=== PATIENT | male | born 1965 | race Caucasian/White ===

== ENCOUNTER 2016-09-24 10:28 | Inpatient (IN) | payer OTHER ==
[2016-09-24] MEDS ORDERED: chlordiazePOXIDE HCL 25 MG CAPSULE PO ONE (11:25)
[2016-09-24] MEDS ORDERED: MAG HYDROX/AL HYDROX/SIMETH 30 ML UNIT-DOSE CUP PO ONE (11:25)
[2016-09-24] MEDS ORDERED: ONDANSETRON 4 MG/2 ML VIAL IVPB ONE (11:25)
[2016-09-24] MEDS ORDERED: FAMOTIDINE 20 MG/50 ML IVPB 50 ML IVPB ONE ×2 (11:25→11:41)
[2016-09-24] MEDS ORDERED: chlordiazePOXIDE HCL 25 MG CAPSULE ONE (11:29)
[2016-09-24] MEDS ORDERED: ONDANSETRON 4 MG/2 ML VIAL ONE (11:30)
[2016-09-24] MEDS ORDERED: MAG HYDROX/AL HYDROX/SIMETH 30 ML UNIT-DOSE CUP ONE (11:41)
[2016-09-24 11:48] LABS: BASOPHIL 1.1 % (0-2.0); EOSINOPHIL 1.5 % (0-4.5); MCH 32.8 pg (25.7-33.7); MCHC 33.5 g/dl (32.0-35.9); MEAN CELL VOLUME 97.8 fl (80-96); NEUTROPHILS 74.6 % (42.8-82.8); PLATELET COUNT 80 K/MM3 (134-434); RDW 13.1 % (11.9-15.9); WHITE BLOOD COUNT 3.2 K/mm3 (4.0-10.0)
[2016-09-24 12:03] LABS: INR 0.9 (0.82-1.09); PROTHROMBIN TIME (PATIENT) 9.9 SEC (9.98-11.88)
[2016-09-24 12:05] LABS: ACTIVATED PTT 28.2 SECONDS (26.9-34.4)
[2016-09-24 12:07] LABS: ALBUMIN 3.7 g/dl (3.4-5.0); ANION GAP 10 (8-16); CALCIUM 8.8 mg/dL (8.5-10.1); CO2 30 mmol/L (21-32); GLUCOSE,RANDOM 105 mg/dL (74-106)
[2016-09-24 12:11] LABS: BILIRUBIN,TOTAL 0.6 mg/dL (0.2-1.0); COCKROFT - GAULT 122.84; CREATININE 0.7 mg/dL (0.7-1.3); SGPT/ALT 99 U/L (12-78); TOT PROT 7.2 g/dl (6.4-8.2)
[2016-09-24 12:12] LABS: ALK PHOS 85 U/L (45-117)
[2016-09-24 12:14] LABS: SGOT/AST 143 U/L (15-37)
--- NOTE | 2016-09-24 12:26 | PDOC ---
History of Present Illness - General History Source: Patient Exam Limitations: No Limitations - History of Present Illness Initial Comments: 09/24/16 13:00 The patient is a 51 year old male presenting with his friend, with a significant past medical history of asthma, depression and alcohol abuse, who presents to the emergency department with abdominal pain, nausea and hemoptysis for the past 2 weeks. The patient describes the abdominal pain as localized on the right side of the abdomen and is intermittent in nature. He notes that the pain is a burning sensation, ranging from mild to moderate, without radiation. He states that the pain is exacerbated when drinks. He describes his vomit as a mixture of blood and water. He also notes that he is having multiple episodes of diarrhea which is nonbloody in nature. He states that he attributes the diarrhea to a lack of food intake, as he is barely drinking and mostly ingesting alcohol. He states that he has not seeing a physician in a long time. The patient denies chest pain, shortness of breath, headache and dizziness. Denies fever, chills and constipation. Denies dysuria, frequency, urgency and hematuria. Allergies: None Past surgical history: None Social history: Daily alcohol abuse (Gaby use). No tobacco or drug use reported PMD - Dr. Felipe Calderon <Damir Bajwa - Last Filed: 09/24/16 13:00> - General History Source: Patient Exam Limitations: No Limitations <Leo Cuevas - Last Filed: 09/24/16 15:42> - General Chief Complaint: Hemoptysis Stated Complaint: COUGHING BLOOD Time Seen by Provider: 09/24/16 11:02 Past History <Damir Bajwa - Last Filed: 09/24/16 13:00> - Past Medical History Diabetes: Yes (on insulin at hs) - Psycho/Social/Smoking Cessation Hx Suicidal Ideation: No Smoking History: Never smoked Have you smoked in the past 12 months: No If you are a former smoker, when did you quit?: Approximately 6 years ago. Cigars Per Day: 0 Hx Alcohol Use: Yes (3 BOTTLES OF RUM) Drug/Substance Use Hx: Yes Substance Use Type: None Hx Substance Use Treatment: No <Leo Cuevas - Last Filed: 09/24/16 15:42> - Past Medical History Allergies/Adverse Reactions: Allergies Allergy/AdvReac Type Severity Reaction Status Date / Time No Known Allergies Allergy Verified 09/24/16 10:38 Home Medications: Ambulatory Orders NK [No Known Home Medication] 09/24/16 Review of Systems - Review of Systems Able to Perform ROS?: Yes Comments:: 09/24/16 13:02 GENERAL/CONSTITUTIONAL: No fever or chills. No weakness. HEAD, EYES, EARS, NOSE AND THROAT: No change in vision. No ear pain or discharge. No sore throat. CARDIOVASCULAR: No chest pain or shortness of breath RESPIRATORY: No cough, wheezing GASTROINTESTINAL: +Abdominal pain, nausea, vomiting, diarrhea, hemoptysis. No constipation. GENITOURINARY: No dysuria, frequency, or change in urination. MUSCULOSKELETAL: No joint or muscle swelling or pain. No neck or back pain. SKIN: No rash NEUROLOGIC: No headache, vertigo, loss of consciousness, or change in strength/ sensation. ENDOCRINE: No increased thirst. No abnormal weight change HEMATOLOGIC/LYMPHATIC: No anemia, easy bleeding, or history of blood clots. ALLERGIC/IMMUNOLOGIC: No hives or skin allergy. <Damir Bajwa - Last Filed: 09/24/16 13:00> *Physical Exam - Vital Signs Last Vital Signs Temp Pulse Resp BP Pulse Ox 99.5 F 105 H 19 138/97 97 09/24/16 10:38 09/24/16 10:38 09/24/16 10:38 09/24/16 10:38 09/24/16 10:38 - Physical Exam Comments: 09/24/16 13:0 GENERAL: Awake, alert, and fully oriented, in no acute distress HEAD: No signs of trauma, normocephalic, atraumatic EYES: PERRLA, EOMI, sclera anicteric, conjunctiva clear ENT: (+) Tongue fasciculations. Auricles normal inspection, hearing grossly normal, nares patent, oropharynx clear without exudates. Moist mucosa NECK: Normal ROM, supple, no lymphadenopathy, JVD, or masses LUNGS: No distress, speaks full sentences, clear to auscultation bilaterally HEART: Regular rate and rhythm, normal S1 and S2, no murmurs, rubs or gallops, peripheral pulses normal and equal bilaterally. ABDOMEN: Soft, nontender, normoactive bowel sounds. No guarding, no rebound. No masses EXTREMITIES: (+) Bilateral upper extremity tremors. Normal range of motion, no edema. No clubbing or cyanosis. NEUROLOGICAL: Cranial nerves II through XII grossly intact. Normal speech, normal gait, no focal sensorimotor deficits SKIN: Warm, Dry, normal turgor, no rashes or lesions noted. <ErynrobertDamir Tahmina - Last Filed: 09/24/16 13:00> - Vital Signs Last Vital Signs Temp Pulse Resp BP Pulse Ox 99.5 F 105 H 19 138/97 97 09/24/16 10:38 09/24/16 10:38 09/24/16 10:38 09/24/16 10:38 09/24/16 10:38 <Leo Cuevas - Last Filed: 09/24/16 15:42> Heart Score/ECG Review #1 ECG reviewed & interpreted by me at: 11:35 09/24/16 12:27 NSR 81 no std/sotero, normal axis, normal intervals, QTC 429 msec. no twi <Leo Cuevas - Last Filed: 09/24/16 15:42> ED Treatment Course - LABORATORY CBC & Chemistry Diagram: 09/24/16 11:27 09/24/16 11:27 - ADDITIONAL ORDERS Additional order review: Laboratory Results 09/24/16 09/24/16 09/24/16 12:13 11:27 11:27 INR PTT (Actin FS) Sodium 143 Potassium 4.2 Chloride 103 Carbon Dioxide 30 Anion Gap 10 BUN 13 Creatinine 0.7 Creat Clearance w eGFR > 60 Random Glucose 105 Calcium 8.8 Total Bilirubin 0.6 AST 143 H ALT 99 H Alkaline Phosphatase 85 Total Protein 7.2 Albumin 3.7 Lipase 380 Blood Type A POSITIVE A POSITIVE Antibody Screen Negative 09/24/16 11:27 INR 0.90 PTT (Actin FS) 28.2 Sodium Potassium Chloride Carbon Dioxide Anion Gap BUN Creatinine Creat Clearance w eGFR Random Glucose Calcium Total Bilirubin AST ALT Alkaline Phosphatase Total Protein Albumin Lipase Blood Type Antibody Screen 09/24/16 11:27 RBC 4.11 MCV 97.8 H MCHC 33.5 RDW 13.1 MPV 7.0 L Neutrophils % 74.6 Lymphocytes % 11.2 Monocytes % 11.6 H Eosinophils % 1.5 Basophils % 1.1 - Medications Given in the ED: ED Medications Discontinued Medications Generic Name Dose Route Start Last Admin Trade Name Brock PRN Reason Stop Dose Admin Al Hydroxide/Mg Hydroxide 30 ml 09/24/16 11:25 09/24/16 11:45 Mylanta Oral Suspension - PO 09/24/16 11:26 30 ml ONCE ONE Administration Chlordiazepoxide HCl 50 mg 09/24/16 11:25 09/24/16 11:40 Librium - PO 09/24/16 11:26 50 mg ONCE ONE Administration Diazepam 10 mg 09/24/16 12:37 09/24/16 12:45 Valium Injection - IVPUSH 09/24/16 12:38 10 mg ONCE ONE Administration Famotidine/Sodium Chloride 50 mls @ 100 mls/hr 09/24/16 11:25 09/24/16 11:45 Pepcid 20 Mg Premixed Ivpb - IVPB 09/24/16 11:54 100 mls/hr ONCE ONE Administration Ondansetron HCl 4 mg 09/24/16 11:25 09/24/16 11:40 Zofran Injection IVPB 09/24/16 11:26 4 mg ONCE ONE Administration <Damir Bajwa - Last Filed: 09/24/16 13:00> - LABORATORY CBC & Chemistry Diagram: 09/24/16 11:27 09/24/16 11:27 - RADIOLOGY Radiology Studies Ordered: Category Date Time Status ABDOMEN & PELVIS CT WITH CONTR [CT] Stat CT Scan 09/24/16 11:25 Ordered CHEST X-RAY PORTABLE* [RAD] Stat Radiology 09/24/16 11:25 Ordered - Medications Given in the ED: ED Medications Discontinued Medications Generic Name Dose Route Start Last Admin Trade Name Brock PRN Reason Stop Dose Admin Al Hydroxide/Mg Hydroxide 30 ml 09/24/16 11:25 09/24/16 11:45 Mylanta Oral Suspension - PO 09/24/16 11:26 30 ml ONCE ONE Administration Chlordiazepoxide HCl 50 mg 09/24/16 11:25 09/24/16 11:40 Librium - PO 09/24/16 11:26 50 mg ONCE ONE Administration Ondansetron HCl 4 mg 09/24/16 11:25 09/24/16 11:40 Zofran Injection IVPB 09/24/16 11:26 4 mg ONCE ONE Administration <Leo Cuevas - Last Filed: 09/24/16 15:42> Medical Decision Making - Medical Decision Making 09/24/16 12:28 A portion of this note was documented by scribe services under my direction. I have reviewed the details of the note, within reason, and agree with the documentation with the following case summary and management plan written by me. Patient treated in the ED. Nursing notes are reviewed and incorporated into the medical decision-making. Vital signs reviewed. Peripheral IV access obtained by the nurse, laboratory studies are drawn and sent, reviewed and interpreted by myself. Vital Signs Temp Pulse Resp BP Pulse Ox 99.5 F 105 H 19 138/97 97 09/24/16 10:38 09/24/16 10:38 09/24/16 10:38 09/24/16 10:38 09/24/16 10:38 51-year-old male with past medical history of alcohol abuse, hypertension, diabetes presents with alcohol withdrawal and abdominal pain and hematemesis. The patient reports that he was having diffuse abdominal pain, R sided and epigastric worsened with drinking alcohol. He drinks gaby daily. States that he has been vomiting his alcohol and food and has become intermittently mixed with blood after vomiting. Denies blood per stool. Does not have a doctor. Last drink was yesterday. Came into the ED today because friend encouraged him to come. CBC, BMP 09/24/16 11:27 09/24/16 11:27 CMP Sodium 143 mmol/L (136-145) 09/24/16 11:27 Potassium 4.2 mmol/L (3.5-5.1) 09/24/16 11:27 Chloride 103 mmol/L (98-107) 09/24/16 11:27 Carbon Dioxide 30 mmol/L (21-32) 09/24/16 11:27 Anion Gap 10 (8-16) 09/24/16 11:27 BUN 13 mg/dL (7-18) 09/24/16 11:27 Creatinine 0.7 mg/dL (0.7-1.3) 09/24/16 11:27 Creat Clearance w eGFR > 60 (>60) 09/24/16 11:27 Random Glucose 105 mg/dL (74-106) 09/24/16 11:27 Calcium 8.8 mg/dL (8.5-10.1) 09/24/16 11:27 Total Bilirubin 0.6 mg/dL (0.2-1.0) 09/24/16 11:27 AST 143 U/L (15-37) H 09/24/16 11:27 ALT 99 U/L (12-78) H 09/24/16 11:27 Alkaline Phosphatase 85 U/L (45-117) 09/24/16 11:27 Total Protein 7.2 g/dl (6.4-8.2) 09/24/16 11:27 Albumin 3.7 g/dl (3.4-5.0) 09/24/16 11:27 Lipase 380 U/L (73-393) 09/24/16 11:27 Low WBC and low plts and elevated LFTs concerning for cirrhosis. Should potentially consider esophageal varices (has not vomited here in ED) With diffuse abdominal pain, pt will need CT scan of abdomen and pelvis. So far has not vomited. Pt is also in alcohol withdrawal. Will give benzos. ultimately patient needs to be admitted for further workup. 09/24/16 15:39 Chest xray reviewed. No acute findings. Case discussed with Dr. Arciniega. She accepts the patient for admission. Requests Dr. Osman. Dr. Osman paged. Case discussed in detail with admitting physician including history, physical exam and ancillary studies. Admitting physician has assumed care for the patient, will follow all pending diagnostics and will complete the evaluation and treatment. <Leo Cuevas - Last Filed: 09/24/16 15:42> *DC/Admit/Observation/Transfer - Attestations Scribe Attestion: 09/24/16 13:03 Documentation prepared by Damir Bajwa, acting as medical artist for Leo Cuevas MD <Damir Bajwa - Last Filed: 09/24/16 13:00> - Discharge Dispostion Admit: Yes <Leo Cuevas - Last Filed: 09/24/16 15:42> Diagnosis at time of Disposition: Hepatic cirrhosis Qualifiers: Hepatic cirrhosis type: alcoholic cirrhosis Ascites presence: without ascites Qualified Code(s): K70.30 - Alcoholic cirrhosis of liver without ascites Alcohol withdrawal syndrome Qualifiers: Complication of substance-induced condition: uncomplicated Qualified Code(s): F10.230 - Alcohol dependence with withdrawal, uncomplicated - Discharge Dispostion Condition at time of disposition: Stable - Referrals Referrals: Felipe Calderon [Primary Care Provider] -
[2016-09-24] MEDS ORDERED: diazePAM CARPU-JECT 10 MG/2 ML DISP.SYRIN IVPUSH ONE ×2 (12:37→15:42)
[2016-09-24] MEDS ORDERED: diazePAM CARPU-JECT 10 MG/2 ML DISP.SYRIN ONE ×2 (12:39→15:43)
[2016-09-24] MEDS ORDERED: LORAZEPAM CARPU-JECT 2 MG/ML DISP.SYRIN IVPUSH ONE (17:51)
--- NOTE | 2016-09-24 18:14 | CON.GI ---
Consult Consult Specialty:: GASTROENTEROLOGY Reason for Consultation:: STREAKS OF BLOOD IN VOMITUS 2 DAYS AGO - History of Present Illness Chief Complaint: SHAKES AND ABDOMINAL PAIN History of Present Illness: 51 YEAR OLD ALCOHOLIC WHO LAST DRANK YESTERDAY AND STATES HE SAW OM BLOOD IN HE VOMITUS THE DAY BEFORE. HE HAS HAD NO FURTHER VOMITING SINCE YESTERDAY BUT NOW HAS ABDOMINAL PAIN IN THE RUQ AND EPIGASTRIC AREA. HE DENIES BRBPR OR MELENA. HE ALSO COMPLAINS OF ANXIETY, NERVOUSNESS, TREMORS CURRENTLY. HE WAS GIVEN LIBRIUM , VALIUM IN THE ED WITH MINIMAL EFFECT. HE STATE HE HAS IVETTE DRINKING FOR ABOUT15 YEAS. HE DRINKS WHAT HE CAN GET EITHER BEER, TEQUILA ETC. SOMETIMES IT IS A QUART AND OTHER TIMES IT IS A 2 QUARTS. HE HAS NOT BLED BEFORE. HAS NO HISTORY OF GI BLEEDING OR ULCERS. HAS NOT SEEN A PHYSICIAN FOR HIS PROBLEMS. HE IS IN THE SYSTEM AT [facility] YE[facility] AGO. 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: Alzheimer's, CVA, Dementia, Migraine, Multiple Sclerosis, Peripheral Neuropathy, Parkinson's, Seizure, Syncope, TIA, Vertigo, Other Cardio/Vascular: No: AFIB, Aneurysm, Aortic Insufficiency, Aortic Stenosis, CAD , CHF, Deep Vein Thrombosis, HTN, Hyperlipdemia, [place], Mitral Insufficiency, Mitral Stenosis, Murmur, Pulmonary Hypertension, Other Pulmonary: No: Asthma, Bronchitis, Cancer, COPD, O2 Dependent, Pneumonia, Previously Intubated, Pulmonary Embolus, Pulmonary Fibrosis, Sleep Apnea, Other Gastrointestinal: No: Ascites, Cancer, Constipation, Crohn's Disease, Diverticulitis, Diverticulosis, Esophageal Varices, Gastritis, GERD, GI Bleed, Hemorrhoids, Hiatal Hernia, Inflamatory Bowel Disease, Irritable Bowel Disease, Pancreatitis, Peptic Ulcer Disease, Ulcerative Colitis, Other Hepatobiliary: No: Cirrhosis, Cholelithiasis, Cholecystitis, Choledocholithiasis , Hepatitis A, Hepatitis B, Hepatitis C, Other Renal/: No: Renal Failure, Renal Inusuff, BPH, Cancer, Hematuria, Hemodialysis , Neurogenic Bladder, Renal Calculi, UTI, Other Heme/Onc: No: Anemia, B12 Deficiency, Bleeding Disorder, Cancer, Current Chemotherapy, Current Radiation Therapy, Hemochromatosis, Hypercoaguable State, Myeloproliferative Synd, Sickle Cell Disease, Sickle Cell Trait, Thrombocytopenia, Other Infectious Disease: No: AIDS, C-Diff, Herpes Zoster, HIV, MRSA, STD's, Tuberculosis, VREF, Other Psych: Yes: Addictions Musculoskeletal: No: Bursitis, Chronic low back pain, Hemiparesis, Hemiplegia, Osteoarthritis, Paraplegia, Other Rheumatology: No: Fibromyalgia, Gout, Lupus, Rheumatoid Arthritis, Sarcoidosis, Vasculitis, Other ENT: No: Allergic Rhinitis, Sinusitis, Other Endocrine: No: Foard's Disease, Hickman's Disease, Diabetes Insipidus, Diabetes Mellitus, Hyperparathyroidism, Hyperthyroidism, Hypothyroidism, Osteopenia, SIADH, Other - Alcohol/Substance Use Hx Alcohol Use: Yes (3 BOTTLES OF RUM) - Smoking History Smoking history: Never smoked Have you smoked in the past 12 months: No If you are a former smoker, when did you quit?: Approximately 6 years ago. Home Medications - Allergies Allergies/Adverse Reactions: Allergies Allergy/AdvReac Type Severity Reaction Status Date / Time No Known Allergies Allergy Verified 09/24/16 10:38 - Home Medications Home Medications: Ambulatory Orders NK [No Known Home Medication] 09/24/16 Family Disease History - Family Disease History Family Disease History: Other: Father Review of Systems - Review of Systems Constitutional: reports: Chills, Loss of Appetite, Other (TREMORS) Eyes: reports: No Symptoms HENT: reports: No Symptoms Cardiovascular: reports: No Symptoms Respiratory: reports: No Symptoms Gastrointestinal: reports: Abdominal Pain, Vomiting, Vomiting Blood Genitourinary: reports: No Symptoms Musculoskeletal: reports: No Symptoms Integumentary: reports: No Symptoms Neurological: reports: Tremors Psychiatric: reports: Altered Sleep Pattern, Anxiety Physical Exam-GI Vital Signs: Vital Signs Temperature 100.2 F H 09/24/16 17:08 Pulse Rate 87 09/24/16 17:08 Respiratory Rate 18 09/24/16 17:08 Blood Pressure 124/76 09/24/16 17:08 O2 Sat by Pulse Oximetry (%) 95 09/24/16 17:08 Constitutional: Yes: Well Nourished, Mild Distress Eyes: Yes: Conjunctiva Clear HENT: Yes: Normocephalic Neck: Yes: Supple Cardiovascular: Yes: Tachycardia Respiratory: Yes: Regular Gastrointestinal Inspection: Yes: Distention ...Auscultate: Yes: Hyperactive Bowel Sounds ...Palpate: Yes: Soft, Tenderness (MILD RUQ PAIN NO GUADING OR REBOUND) Extremities: Yes: WNL Neurological: Yes: Alert, Tremors Psychiatric: Yes: Other (NERVOUS/ANXIOUS) Labs: INR, PTT INR 0.90 (0.82-1.09) 09/24/16 11:27 Imaging - Results Ultrasound: Image Reviewed Problem List - Problems (1) Alcohol withdrawal Assessment/Plan: STAT DOSE OF ATIVAN 3MG IVP LIBRIUM PROTOCOL PER 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 Code(s): K75.9 - INFLAMMATORY LIVER DISEASE, UNSPECIFIED (4) Thrombocytopenia Assessment/Plan: PROBABLY RELATED TO ETOH CONSUMPTION WILL IMPROVE WITH ABSTINENCE, IF NOT PT WOULD NEED FURTHER IMAGING OF IVER Code(s): D69.6 - THROMBOCYTOPENIA, UNSPECIFIED
[2016-09-24] MEDS ORDERED: PNEUMOC 13-VAL CONJ-DIP CRM/PF 0.5 ML DISP.SYRIN IM ONE (18:41)
[2016-09-24] MEDS ORDERED: DEXTROSE 5%-NORMAL SALINE 1,000 ML IV SCH (18:45)
[2016-09-24] MEDS ORDERED: MULTIVIT IVPB SCH (18:45)
[2016-09-24] MEDS ORDERED: [UNRECOGNIZED DRUG - OTHER] IV ONE (18:45)
[2016-09-24] MEDS ORDERED: DEXTROSE 5% IV ONE (18:45)
[2016-09-24] MEDS ORDERED: THIAMINE HCL IV ONE (18:45)
[2016-09-24] MEDS ORDERED: [UNRECOGNIZED DRUG - OTHER] IVPB SCH (18:45)
[2016-09-24] MEDS ORDERED: THIAMINE HCL IVPB SCH (18:45)
[2016-09-24] MEDS ORDERED: POTASSIUM CHLORIDE IVPB SCH (18:45)
[2016-09-24] MEDS ORDERED: NORMAL SALINE IV ONE (18:45)
--- NOTE | 2016-09-24 19:04 | HP ---
Admitting History and Physical - Primary Care Physician PCP: Adryan Arciniega - Admission History of Present Illness: - 51 y o male, h/o asthma, depression, etoh abuse came to er for abdominal pain, nausea and vomitting blood. 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: Alzheimer's, CVA, Dementia, Migraine, Multiple Sclerosis, Peripheral Neuropathy, Parkinson's, Seizure, Syncope, TIA, Vertigo, Other Cardiovascular: No: AFIB, Aneurysm, Aortic Insufficiency, Aortic Stenosis, CAD, CHF, Deep Vein Thrombosis, HTN, Hyperlipdemia, [place], Mitral Insufficiency, Mitral Stenosis, Murmur, Pulmonary Hypertension, Other Pulmonary: No: Asthma, Bronchitis, Cancer, COPD, O2 Dependent, Pneumonia, Previously Intubated, Pulmonary Embolus, Pulmonary Fibrosis, Sleep Apnea, Other Gastrointestinal: No: Ascites, Cancer, Constipation, Crohn's Disease, Diverticulitis, Diverticulosis, Esophageal Varices, Gastritis, GERD, GI Bleed, Hemorrhoids, Hiatal Hernia, Inflamatory Bowel Disease, Irritable Bowel Disease, Pancreatitis, Peptic Ulcer Disease, Ulcerative Colitis, Other Hepatobiliary: No: Cirrhosis, Cholelithiasis, Cholecystitis, Choledocholithiasis , Hepatitis A, Hepatitis B, Hepatitis C, Other Renal/: No: Renal Failure, Renal Inusuff, BPH, Cancer, Hematuria, Hemodialysis , Neurogenic Bladder, Renal Calculi, UTI, Other Heme/Onc: No: Anemia, B12 Deficiency, Bleeding Disorder, Cancer, Current Chemotherapy, Current Radiation Therapy, Hemochromatosis, Hypercoaguable State, Myeloproliferative Synd, Sickle Cell Disease, Sickle Cell Trait, Thrombocytopenia, Other Infectious Disease: No: AIDS, C-Diff, Herpes Zoster, HIV, MRSA, STD's, Tuberculosis, VREF, Other Psych: Yes: Addictions Musculoskeletal: No: Bursitis, Chronic low back pain, Hemiparesis, Hemiplegia, Osteoarthritis, Paraplegia, Other Rheumatology: No: Fibromyalgia, Gout, Lupus, Rheumatoid Arthritis, Sarcoidosis, Vasculitis, Other ENT: No: Allergic Rhinitis, Sinusitis, Other Endocrine: No: Wagoner's Disease, [place]'s Disease, Diabetes Insipidus, Diabetes Mellitus, Hyperparathyroidism, Hyperthyroidism, Hypothyroidism, Osteopenia, SIADH, Other - Smoking History Smoking history: Never smoked Have you smoked in the past 12 months: No If you are a former smoker, when did you quit?: Approximately 6 years ago. - Alcohol/Substance Use Hx Alcohol Use: Yes (3 BOTTLES OF RUM) Home Medications - Allergies Allergies/Adverse Reactions: Allergies Allergy/AdvReac Type Severity Reaction Status Date / Time No Known Allergies Allergy Verified 09/24/16 10:38 - Home Medications Home Medications: Ambulatory Orders NK [No Known Home Medication] 09/24/16 Family Disease History - Family Disease History Family History: Denies Family Disease History: Other: Father Physical Examination Vital Signs: Vital Signs Temperature 97.8 F 09/24/16 18:00 Pulse Rate 86 09/24/16 18:00 Respiratory Rate 18 09/24/16 18:00 Blood Pressure 144/94 09/24/16 18:00 O2 Sat by Pulse Oximetry (%) 95 09/24/16 17:08 Constitutional: Yes: No Distress HENT: Yes: Atraumatic Neck: Yes: Supple Cardiovascular: Yes: Regular Rate and Rhythm Respiratory: Yes: CTA Bilaterally Gastrointestinal: Yes: Normal Bowel Sounds, Tenderness (mild ruq) Extremities: Yes: WNL Neurological: Yes: Alert, Oriented Problem List - Problems (1) Alcohol withdrawal Code(s): F10.239 - ALCOHOL DEPENDENCE WITH WITHDRAWAL, UNSPECIFIED Qualifiers : Complication of substance-induced condition: uncomplicated Qualified Code(s): F10.230 - Alcohol dependence with withdrawal, uncomplicated (2) Alcoholic gastritis with bleeding Code(s): K29.21 - ALCOHOLIC GASTRITIS WITH BLEEDING (3) Cirrhosis Code(s): K74.60 - UNSPECIFIED CIRRHOSIS OF LIVER Qualifiers: Hepatic cirrhosis type: alcoholic cirrhosis Ascites presence: without ascites Qualified Code(s): K70.30 - Alcoholic cirrhosis of liver without ascites (4) Hepatitis Code(s): K75.9 - INFLAMMATORY LIVER DISEASE, UNSPECIFIED (5) Thrombocytopenia Code(s): D69.6 - THROMBOCYTOPENIA, UNSPECIFIED Assessment/Plan Laboratory Tests 09/24/16 09/24/16 09/24/16 11:27 11:27 11:27 WBC 3.2 L RBC 4.11 Hgb 13.5 Hct 40.2 MCV 97.8 H MCHC 33.5 RDW 13.1 Plt Count 80 L MPV 7.0 L Neutrophils % 74.6 Lymphocytes % 11.2 Monocytes % 11.6 H Eosinophils % 1.5 Basophils % 1.1 INR 0.90 PTT (Actin FS) 28.2 Sodium 143 Potassium 4.2 Chloride 103 Carbon Dioxide 30 Anion Gap 10 BUN 13 Creatinine 0.7 Creat Clearance w eGFR > 60 Random Glucose 105 Calcium 8.8 Total Bilirubin 0.6 AST 143 H ALT 99 H Alkaline Phosphatase 85 Total Protein 7.2 Albumin 3.7 Lipase 380 Blood Type Antibody Screen 09/24/16 09/24/16 11:27 12:13 WBC RBC Hgb Hct MCV MCHC RDW Plt Count MPV Neutrophils % Lymphocytes % Monocytes % Eosinophils % Basophils % INR PTT (Actin FS) Sodium Potassium Chloride Carbon Dioxide Anion Gap BUN Creatinine Creat Clearance w eGFR Random Glucose Calcium Total Bilirubin AST ALT Alkaline Phosphatase Total Protein Albumin Lipase Blood Type A POSITIVE A POSITIVE Antibody Screen Negative Active Medications Generic Name Dose Route Start Last Admin Trade Name Freq PRN Reason Stop Dose Admin Potassium Chloride 10 meq/ 1,017.2 mls @ 125 mls/hr 09/24/16 18:45 Thiamine HCl 200 mg/ IVPB Multivitamins/Minerals 10 ml/ ASDIR BOUCHRA Folic Acid 1 mg/ Dextrose/ Sodium Chloride Pantoprazole Sodium 40 mg 09/24/16 22:00 Protonix 40mg Ivpb (Pre-Docked) IVPB BID BOUCHRA Pneumococcal 13-Valent Conj Vacc 0.5 ml 09/24/16 18:41 Prevnar 13 Syringe - IM 09/24/16 18:42 .ONCE ONE A/P 1.ETOH ABUSE/WITHDRAWL PRN ATIVAN LIBRIUM DETOX CONSULT 2.HEMOPTYSIS GASTRITIS? SECONDARY TO ETOH ABUSE IV PROTONIX GI EVAL MONITOR CBC
[2016-09-24] MEDS: FOLIC ACID 5 MG/1 ML IVPB SCH (21:04)
[2016-09-24] MEDS: POTASSIUM CHLORIDE 10 MEQ in DEXTROSE 5%-NORMAL SALINE 1,000 ML IVPB SCH (21:05)
[2016-09-24] MEDS: THIAMINE HCL 200 MG/2 ML VIAL IVPB SCH (21:05)
[2016-09-24] MEDS: MULTIVIT INJ. ADULT COMBO WITH VIT K 1 COMBO 10 ML VIAL IV SCH (21:05)
[2016-09-24] MEDS ORDERED: LORAZEPAM CARPU-JECT 2 MG/ML DISP.SYRIN IVPUSH PRN (21:28)
[2016-09-24] MEDS ORDERED: PANTOPRAZOLE SODIUM 40 MG in SODIUM CHLORIDE 100 ML IVPB SCH (22:00)
[2016-09-24] MEDS: PANTOPRAZOLE SODIUM 40 MG/100 ML PRE-DOCKED IVPB SCH (22:56)
[2016-09-25] MEDS ORDERED: HYDROmorphone HCL CARPU-JECT 1 MG/1 ML DISP.SYRIN IVPB PRN (00:40)
[2016-09-25] MEDS: POTASSIUM CHLORIDE 10 MEQ in DEXTROSE 5%-NORMAL SALINE 1,000 ML IVPB SCH ×3 (05:06→12:00)
[2016-09-25 07:32] LABS: BASOPHIL 1.1 % (0-2.0); EOSINOPHIL 3.5 % (0-4.5); MCH 33.4 pg (25.7-33.7); MCHC 33.9 g/dl (32.0-35.9); MEAN CELL VOLUME 98.6 fl (80-96); MEAN PLT VOLUME 7.5 fl (7.5-11.1); NEUTROPHILS 66.3 % (42.8-82.8); PLATELET COUNT 77 K/MM3 (134-434); RDW 12.8 % (11.9-15.9); WHITE BLOOD COUNT 3.6 K/mm3 (4.0-10.0)
[2016-09-25 07:51] LABS: ALBUMIN 3.5 g/dl (3.4-5.0); ANION GAP 10 (8-16); BILIRUBIN,TOTAL 1.2 mg/dL (0.2-1.0); CALCIUM 8.8 mg/dL (8.5-10.1); CO2 31 mmol/L (21-32); COCKROFT - GAULT 107.49; CREATININE 0.8 mg/dL (0.7-1.3); GLUCOSE,RANDOM 86 mg/dL (74-106); SGOT/AST 109 U/L (15-37); SGPT/ALT 83 U/L (12-78)
[2016-09-25 07:54] LABS: ALK PHOS 87 U/L (45-117); TOT PROT 6.9 g/dl (6.4-8.2)
[2016-09-25 07:57] VITALS: BMI 22.6
[2016-09-25] MEDS ORDERED: PT OWN MED DRAWER 7, Y5N ONE (08:55)
[2016-09-25] MEDS: PANTOPRAZOLE SODIUM 40 MG/100 ML PRE-DOCKED IVPB SCH (09:02)
[2016-09-25] MEDS ORDERED: chlordiazePOXIDE HCL 25 MG CAPSULE PO PRN (11:08)
--- NOTE | 2016-09-25 11:13 | CONSULT ---
[id number],MD - History History of Present Illness: 51 y/o man with a long hx. of alcoholism is admitted with withdrawal sx. 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: No: Alzheimer's, CVA, Dementia, Migraine, Multiple Sclerosis, Peripheral Neuropathy, Parkinson's, Seizure, Syncope, TIA, Vertigo, Other Cardio/Vascular: No: AFIB, Aneurysm, Aortic Insufficiency, Aortic Stenosis, CAD , CHF, Deep Vein Thrombosis, HTN, Hyperlipdemia, OK, Mitral Insufficiency, Mitral Stenosis, Murmur, Pulmonary Hypertension, Other Pulmonary: No: Asthma, Bronchitis, Cancer, COPD, O2 Dependent, Pneumonia, Previously Intubated, Pulmonary Embolus, Pulmonary Fibrosis, Sleep Apnea, Other Gastrointestinal: No: Ascites, Cancer, Constipation, Crohn's Disease, Diverticulitis, Diverticulosis, Esophageal Varices, Gastritis, GERD, GI Bleed, Hemorrhoids, Hiatal Hernia, Inflamatory Bowel Disease, Irritable Bowel Disease, Pancreatitis, Peptic Ulcer Disease, Ulcerative Colitis, Other Hepatobiliary: No: Cirrhosis, Cholelithiasis, Cholecystitis, Choledocholithiasis , Hepatitis A, Hepatitis B, Hepatitis C, Other Renal/: No: Renal Failure, Renal Inusuff, BPH, Cancer, Hematuria, Hemodialysis , Neurogenic Bladder, Renal Calculi, UTI, Other Infectious Disease: No: AIDS, C-Diff, Herpes Zoster, HIV, MRSA, STD's, Tuberculosis, VREF, Other Psych: Yes: Addictions Musculoskeletal: No: Bursitis, Chronic low back pain, Hemiparesis, Hemiplegia, Osteoarthritis, Paraplegia, Other Rheumatology: No: Fibromyalgia, Gout, Lupus, Rheumatoid Arthritis, Sarcoidosis, Vasculitis, Other ENT: No: Allergic Rhinitis, Sinusitis, Other Endocrine: No: Real's Disease, Lia's Disease, Diabetes Insipidus, Diabetes Mellitus, Hyperparathyroidism, Hyperthyroidism, Hypothyroidism, Osteopenia, SIADH, Other - Significant Medical Findings: Laboratory Last Values WBC 3.6 K/mm3 (4.0-10.0) L 09/25/16 05:35 RBC 4.06 M/mm3 (4.00-5.60) 09/25/16 05:35 Hgb 13.6 GM/dL (11.7-16.9) 09/25/16 05:35 Hct 40.0 % (35.4-49) 09/25/16 05:35 MCV 98.6 fl (80-96) H 09/25/16 05:35 MCHC 33.9 g/dl (32.0-35.9) 09/25/16 05:35 RDW 12.8 % (11.9-15.9) 09/25/16 05:35 Plt Count 77 K/MM3 (134-434) L 09/25/16 05:35 MPV 7.5 fl (7.5-11.1) 09/25/16 05:35 Neutrophils % 66.3 % (42.8-82.8) 09/25/16 05:35 Lymphocytes % 18.5 % (8-40) D 09/25/16 05:35 Monocytes % 10.6 % (3.8-10.2) H 09/25/16 05:35 Eosinophils % 3.5 % (0-4.5) D 09/25/16 05:35 Basophils % 1.1 % (0-2.0) 09/25/16 05:35 INR 0.90 (0.82-1.09) 09/24/16 11:27 PTT (Actin FS) 28.2 SECONDS (26.9-34.4) 09/24/16 11:27 Sodium 141 mmol/L (136-145) 09/25/16 05:35 Potassium 3.4 mmol/L (3.5-5.1) L 09/25/16 05:35 Chloride 100 mmol/L (98-107) 09/25/16 05:35 Carbon Dioxide 31 mmol/L (21-32) 09/25/16 05:35 Anion Gap 10 (8-16) 09/25/16 05:35 BUN 11 mg/dL (7-18) 09/25/16 05:35 Creatinine 0.8 mg/dL (0.7-1.3) 09/25/16 05:35 Creat Clearance w eGFR > 60 (>60) 09/25/16 05:35 Random Glucose 86 mg/dL (74-106) 09/25/16 05:35 Calcium 8.8 mg/dL (8.5-10.1) 09/25/16 05:35 Total Bilirubin 1.2 mg/dL (0.2-1.0) H D 09/25/16 05:35 GGT 965 U/L (5-85) H 09/25/16 05:35 AST 109 U/L (15-37) H D 09/25/16 05:35 ALT 83 U/L (12-78) H 09/25/16 05:35 Alkaline Phosphatase 87 U/L (45-117) 09/25/16 05:35 Ammonia 36.35 umol/L (11-32) H 09/25/16 05:35 Total Protein 6.9 g/dl (6.4-8.2) 09/25/16 05:35 Albumin 3.5 g/dl (3.4-5.0) 09/25/16 05:35 Lipase 355 U/L (73-393) 09/25/16 05:35 Hepatitis C Antibody Cancelled 09/24/16 20:20 Blood Type A POSITIVE 09/24/16 12:13 Antibody Screen Negative 09/24/16 11:27 labs noted CIWA Score - CIWA Score Nausea/Vomitin Muscle Tremors: 6 Anxiety: 5 Agitation: 5 Paroxysmal Sweats: 4-Forehead w/Sweat Beads Orientation: 1-Uncertain about Date Tacttile Disturbances: 1-Very Mild Itch/Numbness Auditory Disturbances: 0-None Visual Disturbances: 0-None Headache: 0-None Present CIWA-Ar Total Score: 27 Assessment Plan - Diagnosis (1) Alcoholic gastritis with bleeding Status: Acute (2) Alcohol dependence with uncomplicated withdrawal Status: Acute - Medication Detox Regimen/Protocol: Erwin
[2016-09-25] MEDS: THIAMINE HCL 200 MG/2 ML VIAL IVPB SCH (12:00)
[2016-09-25] MEDS: MULTIVIT INJ. ADULT COMBO WITH VIT K 1 COMBO 10 ML VIAL IV SCH (12:00)
[2016-09-25] MEDS: FOLIC ACID 5 MG/1 ML IVPB SCH (12:00)
[2016-09-25] MEDS: chlordiazePOXIDE HCL 25 MG CAPSULE PO SCH ×3 (12:36→22:15)
[2016-09-25] MEDS ORDERED: chlordiazePOXIDE HCL 25 MG CAPSULE PO ONE (14:00)
[2016-09-25] MEDS: DEXTROSE 5%-0.45% SALINE 1,000 ML IV SCH (18:26)
--- NOTE | 2016-09-25 18:53 | PN ---
Progress Note, Physician History of Present Illness: mild abd pain - Current Medication List Current Medications: Active Medications Chlordiazepoxide HCl (Librium -) 50 mg PO [id number] [facility] Stop: 09/26/16 05:01 Last Admin: 09/25/16 18:35 Dose: Not Given Chlordiazepoxide HCl (Librium -) 25 mg PO Q4H PRN PRN Reason: WITHDRAWAL(CONT SUBST) Stop: 09/28/16 11:07 Chlordiazepoxide HCl (Librium -) 25 mg PO [id number] [facility] Stop: 09/27/16 05:01 Chlordiazepoxide HCl (Librium -) 15 mg PO [id number] [facility] Stop: 09/28/16 05:01 Hydromorphone HCl (Dilaudid Injection -) 1 mg IVPB Q4H PRN Last Admin: 09/25/16 00:51 Dose: 1 mg Dextrose/Sodium Chloride (D5-1/2ns -) 1,000 mls @ 125 mls/hr IV ASDIR [facility] Last Admin: 09/25/16 18:26 Dose: 125 mls/hr Lorazepam (Ativan Injection -) 1 mg IVPUSH Q4H PRN PRN Reason: WITHDRAWAL(CONT SUBST) Pantoprazole Sodium (Protonix 40mg Ivpb (Pre-Docked)) 40 mg IVPB BID [facility] Last Admin: 09/25/16 09:02 Dose: 40 mg - Objective Vital Signs: Vital Signs Temperature 99.3 F 09/25/16 14:47 Pulse Rate 93 H 09/25/16 14:47 Respiratory Rate 20 09/25/16 14:47 Blood Pressure 138/99 09/25/16 14:47 O2 Sat by Pulse Oximetry (%) 95 09/25/16 09:00 Constitutional: Yes: No Distress HENT: Yes: Atraumatic Neck: Yes: Supple Cardiovascular: Yes: Regular Rate and Rhythm Gastrointestinal: Yes: Normal Bowel Sounds, Tenderness (mild ruq) Extremities: Yes: WNL Neurological: Yes: Alert, Oriented Labs: CBC, BMP 09/25/16 05:35 09/25/16 05:35 INR, PTT INR 0.90 (0.82-1.09) 09/24/16 11:27 Problem List - Problems (1) Alcohol withdrawal Assessment/Plan: ON PRN ATIVAN LIBRIUM PROTOCOL Code(s): F10.239 - ALCOHOL DEPENDENCE WITH WITHDRAWAL, UNSPECIFIED Qualifiers : Complication of substance-induced condition: uncomplicated Qualified Code(s): F10.230 - Alcohol dependence with withdrawal, uncomplicated (2) Alcoholic gastritis with bleeding Assessment/Plan: monitor cbc iv protonix npo Code(s): K29.21 - ALCOHOLIC GASTRITIS WITH BLEEDING (3) Cirrhosis Code(s): K74.60 - UNSPECIFIED CIRRHOSIS OF LIVER Qualifiers: Hepatic cirrhosis type: alcoholic cirrhosis Ascites presence: without ascites Qualified Code(s): K70.30 - Alcoholic cirrhosis of liver without ascites (4) Hepatitis Code(s): K75.9 - INFLAMMATORY LIVER DISEASE, UNSPECIFIED (5) Thrombocytopenia Assessment/Plan: PROBABLY DUE TO ETOH Code(s): D69.6 - THROMBOCYTOPENIA, UNSPECIFIED
--- NOTE | 2016-09-25 19:29 | PN ---
GI Progress Note Subjective: Gastroenterology states he is hungry, wants to eat still anxoius , mild abdominal pain - Objective Vital Signs: Vital Signs Temperature 99.3 F 09/25/16 14:47 Pulse Rate 93 H 09/25/16 14:47 Respiratory Rate 20 09/25/16 14:47 Blood Pressure 138/99 09/25/16 14:47 O2 Sat by Pulse Oximetry (%) 95 09/25/16 09:00 Constitutional: Anxious Eyes: Yes: Conjunctiva Clear Neck: Yes: Supple Cardiovascular: Yes: Regular Rate and Rhythm, Tachycardia Respiratory: Yes: Regular Gastrointestinal Inspection: Yes: WNL ...Auscultate: Yes: Normoactive Bowel Sounds ...Palpate: Yes: Soft Extremities: Yes: WNL Neurological: Yes: Alert, Oriented, Tremors Labs: CBC, BMP 09/25/16 05:35 09/25/16 05:35 INR, PTT INR 0.90 (0.82-1.09) 09/24/16 11:27 Problem List - Problems (1) Alcohol withdrawal Assessment/Plan: less tremors today ,still anxious and tachy advance diet to full liquid diet continue hydration with multivit, thiamine and folate, lower rate to 100 change protonix to po. Code(s): F10.239 - ALCOHOL DEPENDENCE WITH WITHDRAWAL, UNSPECIFIED Qualifiers : Complication of substance-induced condition: uncomplicated Qualified Code(s): F10.230 - Alcohol dependence with withdrawal, uncomplicated (2) Alcoholic gastritis with bleeding Code(s): K29.21 - ALCOHOLIC GASTRITIS WITH BLEEDING (3) Hepatitis Code(s): K75.9 - INFLAMMATORY LIVER DISEASE, UNSPECIFIED (4) Thrombocytopenia Code(s): D69.6 - THROMBOCYTOPENIA, UNSPECIFIED
[2016-09-25] MEDS: PANTOPRAZOLE 40 MG TABLET (FP) PO SCH (22:15)
--- NOTE | 2016-09-25 23:00 | EKG ---
Test Reason : Blood Pressure : / mmHG Vent. Rate : 081 BPM Atrial Rate : 081 BPM P-R Int : 140 ms QRS Dur : 096 ms QT Int : 370 ms P-R-T Axes : 062 030 054 degrees QTc Int : 429 ms NORMAL SINUS RHYTHM NORMAL ECG NO PREVIOUS ECGS AVAILABLE Confirmed by YANNI WALKER MD ([id number]) on 09/25/2016 11:00:10 PM Referred By: Confirmed By:YANNI WALKER MD
[2016-09-26] MEDS: chlordiazePOXIDE HCL 25 MG CAPSULE PO SCH ×4 (05:49→22:00)
[2016-09-26 06:11] LABS: HEP B SURFACE AB Non Reactive (.)
[2016-09-26] MEDS: PANTOPRAZOLE 40 MG TABLET (FP) PO SCH ×2 (10:59→22:00)
[2016-09-26] MEDS: DEXTROSE 5%-0.45% SALINE 1,000 ML IV SCH (11:01)
--- NOTE | 2016-09-26 18:19 | PN ---
Progress Note, Physician - Current Medication List Current Medications: Active Medications Chlordiazepoxide HCl (Librium -) 25 mg PO Q4H PRN PRN Reason: WITHDRAWAL(CONT SUBST) Stop: 09/28/16 11:07 Chlordiazepoxide HCl (Librium -) 25 mg PO [id number] [facility] Stop: 09/27/16 05:01 Last Admin: 09/26/16 17:46 Dose: 25 mg Chlordiazepoxide HCl (Librium -) 15 mg PO [id number] [facility] Stop: 09/28/16 05:01 Hydromorphone HCl (Dilaudid Injection -) 1 mg IVPB Q4H PRN Last Admin: 09/25/16 00:51 Dose: 1 mg Lorazepam (Ativan Injection -) 1 mg IVPUSH Q4H PRN PRN Reason: WITHDRAWAL(CONT SUBST) Multivitamins/Minerals/Vitamin C (Tab-A-Vit -) 1 tab PO DAILY [facility] Pantoprazole Sodium (Protonix -) 40 mg PO BID [facility] Last Admin: 09/26/16 10:59 Dose: 40 mg Thiamine HCl (Vitamin B1 -) 100 mg PO BID [facility] - Objective Vital Signs: Vital Signs Temperature 98.7 F 09/26/16 14:26 Pulse Rate 96 H 09/26/16 14:26 Respiratory Rate 20 09/26/16 14:26 Blood Pressure 136/91 09/26/16 14:26 O2 Sat by Pulse Oximetry (%) 95 09/25/16 09:00 Constitutional: Yes: No Distress HENT: Yes: Atraumatic Neck: Yes: Supple Cardiovascular: Yes: Regular Rate and Rhythm Respiratory: Yes: CTA Bilaterally Gastrointestinal: Yes: Normal Bowel Sounds Extremities: Yes: WNL Neurological: Yes: Alert, Oriented Labs: CBC, BMP 09/25/16 05:35 09/25/16 05:35 INR, PTT INR 0.90 (0.82-1.09) 09/24/16 11:27 Problem List - Problems (1) Alcohol withdrawal Assessment/Plan: ON PRN ATIVAN LIBRIUM PROTOCOL Code(s): F10.239 - ALCOHOL DEPENDENCE WITH WITHDRAWAL, UNSPECIFIED Qualifiers : Complication of substance-induced condition: uncomplicated Qualified Code(s): F10.230 - Alcohol dependence with withdrawal, uncomplicated (2) Alcoholic gastritis with bleeding Assessment/Plan: CBC STABLE SWITCH TO PO MEDS ADVANCE DIET DC IVF Code(s): K29.21 - ALCOHOLIC GASTRITIS WITH BLEEDING (3) Cirrhosis Code(s): K74.60 - UNSPECIFIED CIRRHOSIS OF LIVER Qualifiers: Hepatic cirrhosis type: alcoholic cirrhosis Ascites presence: without ascites Qualified Code(s): K70.30 - Alcoholic cirrhosis of liver without ascites (4) Hepatitis Code(s): K75.9 - INFLAMMATORY LIVER DISEASE, UNSPECIFIED (5) Thrombocytopenia Assessment/Plan: PROBABLY DUE TO ETOH MONITOR Code(s): D69.6 - THROMBOCYTOPENIA, UNSPECIFIED Assessment/Plan A/P 1.ETOH ABUSE/WITHDRAWL PRN ATIVAN LIBRIUM DETOX CONSULT 2.HEMOPTYSIS GASTRITIS? SECONDARY TO ETOH ABUSE IV PROTONIX GI EVAL MONITOR CBC
[2016-09-26] MEDS: MULTIVITAMINS (DAILY MVI) TABLET (FP) PO SCH (19:21)
[2016-09-26] MEDS: THIAMINE HCL 100 MG TABLET (FP) PO SCH (22:00)
[2016-09-26] MEDS ORDERED: LORazepam 1 MG TABLET PO ONE (23:45)
[2016-09-27 00:10] LABS: SMOOTH MUSCLE AB 30 Units (0-19)
[2016-09-27] MEDS: chlordiazePOXIDE HCL 25 MG CAPSULE PO SCH (05:50)
[2016-09-27] MEDS ORDERED: PT OWN MED DRAWER 7, Y5N ONE (06:48)
[2016-09-27] MEDS: THIAMINE HCL 100 MG TABLET (FP) PO SCH ×2 (10:17→22:40)
[2016-09-27] MEDS: PANTOPRAZOLE 40 MG TABLET (FP) PO SCH ×2 (10:17→22:40)
[2016-09-27] MEDS: MULTIVITAMINS (DAILY MVI) TABLET (FP) PO SCH (10:17)
[2016-09-27] MEDS: chlordiazePOXIDE 5 MG CAPSULE PO SCH ×3 (10:17→22:40)
[2016-09-27] MEDS: DEXTROSE 5%-0.45% SALINE 1,000 ML IV SCH (10:18)
--- NOTE | 2016-09-27 17:08 | PN ---
Progress Note, Physician - Current Medication List Current Medications: Active Medications Chlordiazepoxide HCl (Librium -) 25 mg PO Q4H PRN PRN Reason: WITHDRAWAL(CONT SUBST) Stop: 09/28/16 11:07 Chlordiazepoxide HCl (Librium -) 15 mg PO [id number] Stop: 09/28/16 05:01 Last Admin: 09/27/16 10:17 Dose: 15 mg Hydromorphone HCl (Dilaudid Injection -) 1 mg IVPB Q4H PRN Last Admin: 09/25/16 00:51 Dose: 1 mg Lorazepam (Ativan Injection -) 1 mg IVPUSH Q4H PRN PRN Reason: WITHDRAWAL(CONT SUBST) Multivitamins/Minerals/Vitamin C (Tab-A-Vit -) 1 tab PO DAILY [facility] Last Admin: 09/27/16 10:17 Dose: 1 tab Pantoprazole Sodium (Protonix -) 40 mg PO BID [facility] Last Admin: 09/27/16 10:17 Dose: 40 mg Thiamine HCl (Vitamin B1 -) 100 mg PO BID [facility] Last Admin: 09/27/16 10:17 Dose: 100 mg - Objective Vital Signs: Vital Signs Temperature 98.6 F 09/27/16 14:33 Pulse Rate 113 H 09/27/16 14:33 Respiratory Rate 20 09/27/16 14:33 Blood Pressure 107/58 09/27/16 14:33 O2 Sat by Pulse Oximetry (%) 96 09/26/16 21:00 Constitutional: Yes: No Distress HENT: Yes: Atraumatic Neck: Yes: Supple Cardiovascular: Yes: Regular Rate and Rhythm Respiratory: Yes: CTA Bilaterally Gastrointestinal: Yes: Normal Bowel Sounds Extremities: Yes: WNL Neurological: Yes: Alert, Oriented Labs: CBC, BMP 09/25/16 05:35 09/25/16 05:35 INR, PTT INR 0.90 (0.82-1.09) 09/24/16 11:27 Problem List - Problems (1) Alcohol withdrawal Assessment/Plan: ON PRN ATIVAN LIBRIUM PROTOCOL Code(s): F10.239 - ALCOHOL DEPENDENCE WITH WITHDRAWAL, UNSPECIFIED Qualifiers : Complication of substance-induced condition: uncomplicated Qualified Code(s): F10.230 - Alcohol dependence with withdrawal, uncomplicated (2) Alcoholic gastritis with bleeding Assessment/Plan: CBC STABLE SWITCH TO PO MEDS ADVANCE DIET DC IVF Code(s): K29.21 - ALCOHOLIC GASTRITIS WITH BLEEDING (3) Cirrhosis Code(s): K74.60 - UNSPECIFIED CIRRHOSIS OF LIVER Qualifiers: Hepatic cirrhosis type: alcoholic cirrhosis Ascites presence: without ascites Qualified Code(s): K70.30 - Alcoholic cirrhosis of liver without ascites (4) Hepatitis Code(s): K75.9 - INFLAMMATORY LIVER DISEASE, UNSPECIFIED (5) Thrombocytopenia Assessment/Plan: PROBABLY DUE TO ETOH MONITOR Code(s): D69.6 - THROMBOCYTOPENIA, UNSPECIFIED Assessment/Plan A/P 1.ETOH ABUSE/WITHDRAWL PRN ATIVAN LIBRIUM DETOX CONSULT 2.HEMOPTYSIS GASTRITIS? SECONDARY TO ETOH ABUSE IV PROTONIX GI EVAL MONITOR CBC
[2016-09-28] MEDS: chlordiazePOXIDE 5 MG CAPSULE PO SCH (05:44)
[2016-09-28] MEDS: MULTIVITAMINS (DAILY MVI) TABLET (FP) PO SCH (09:16)
[2016-09-28] MEDS: THIAMINE HCL 100 MG TABLET (FP) PO SCH (09:16)
[2016-09-28] MEDS: PANTOPRAZOLE 40 MG TABLET (FP) PO SCH (09:16)
[2016-09-28 15:40] VITALS: BP 113/74; PULSE 93; TEMP 98.2
--- NOTE | 2016-09-28 17:00 | DS ---
Physical Examination Vital Signs: Vital Signs Temperature 98.2 F 09/28/16 15:32 Pulse Rate 93 H 09/28/16 15:32 Respiratory Rate 20 09/28/16 15:32 Blood Pressure 113/74 09/28/16 15:32 O2 Sat by Pulse Oximetry (%) 97 09/28/16 09:00 Constitutional: Yes: No Distress HENT: Yes: Atraumatic Neck: Yes: Supple Cardiovascular: Yes: Regular Rate and Rhythm Respiratory: Yes: CTA Bilaterally Gastrointestinal: Yes: Normal Bowel Sounds Extremities: Yes: WNL Neurological: Yes: Alert, Oriented Labs: CBC, BMP 09/25/16 05:35 09/25/16 05:35 Discharge Summary Reason For Visit: ALCOHOL WITHDRAWAL SYNDROME; HEPATIC CIRRHOSIS Current Active Problems Alcohol dependence with uncomplicated withdrawal (Acute) Alcohol withdrawal (Acute) Alcoholic gastritis with bleeding (Acute) Cirrhosis (Acute) Hepatitis (Acute) Thrombocytopenia (Acute) - Instructions Referrals: Felipe Calderon [Primary Care Provider] - - Home Medications Comprehensive Discharge Medication List: Ambulatory Orders Multivitamins [Multivit ([facility] Formulary)] 1 tab PO DAILY #30 tab 09/28/16 Pantoprazole Sodium [Protonix -] 40 mg PO BID #60 bottle MDD 2 09/28/16 Thiamine HCl [Vitamin B1 -] 100 mg PO BID #60 tablet 09/28/16 ri home
[2016-10-08 14:41] LABS: GLUCOSE SERUM SEE FILE COPY
== END 2016-09-28 17:56 | disposition home or self-care (01) | DRG 241 ==
LOC: JER 10:28 → JERBED 15:42 → J5S 17:20
PROVIDERS: ADMIT Internal Medicine; ATTEND Internal Medicine
PROC: HZ2ZZZZ Detoxification Services for Substance Abuse Treatment (ICD-10-PCS; principal; 2016-09-25)
DX: K29.21 Alcoholic gastritis with bleeding (principal); D69.6 Thrombocytopenia, unspecified; F10.230 Alcohol dependence with withdrawal, uncomplicated; K70.30 Alcoholic cirrhosis of liver without ascites; J45.909 Unspecified asthma, uncomplicated; F32.9 Major depressive disorder, single episode, unspecified; R04.2 Hemoptysis
CPT/HCPCS: 36415; 71010-TC; 74177-TC; 76705-TC; 80053; 82140; 82977; 83516; 83690; 85025; 85610; 85730; 86704; 86706; 86708; 86850; 86900; 86901; 87340; 90670; 93005; 93010; 99283-25; Q9967

== ENCOUNTER 2016-10-11 10:27 | Emergency (ER) | payer OTHER ==
[2016-10-11] MEDS ORDERED: MAG HYDROX/AL HYDROX/SIMETH 355 ML ORAL.SUSP PO ONE (10:49)
[2016-10-11] MEDS ORDERED: ONDANSETRON 4 MG/2 ML VIAL IVPB ONE (10:49)
[2016-10-11] MEDS ORDERED: FAMOTIDINE 20 MG/50 ML IVPB 20 MG in PREMIX 50 IVPB ONE (10:49)
[2016-10-11] MEDS ORDERED: ALBUTEROL SO4 2.5/IPRATROPIUM 0.5 INH SOL 3 ML VIAL.NEB. NEB ONE (10:49)
[2016-10-11] MEDS ORDERED: FAMOTIDINE 20 MG/50 ML IVPB 50 ML IVPB ONE (11:14)
[2016-10-11] MEDS ORDERED: ONDANSETRON 4 MG/2 ML VIAL ONE (11:14)
[2016-10-11 11:17] VITALS: TEMP 97.7; BMI 23.6
--- NOTE | 2016-10-11 11:18 | PDOC ---
History of Present Illness - General History Source: Patient Exam Limitations: No Limitations - History of Present Illness Initial Comments: 10/11/16 13:10 The patient is a 51 year old male, with a significant past medical history of asthma, diabetes, and hepatitis, who presents to the emergency department complaining of abdominal pain s/p consuming an unknown amount of alcohol since yesterday. Patient reports associated epigastric burning. The patient admits he has been drinking a bottle of liquor and beers prior to presentation. He reports he presented to [facility] 2 days ago, where he was admitted for ETOH use. Patient reports he was given paperwork to go to detox, but states he has lost the papers. Patient states he was at [place] approximately 2 weeks ago, where he presented with nausea and hemoptysis secondary to ETOH consumption. Patient denies any hemoptysis episodes since. Today, patient reports some associated SOB, for which he has taken albuterol approximately 30 minutes ago with mild relief. Patient denies any fever, chills, cough, headache , or dizziness. Patient denies any chest pain, diaphoresis, or palpitations. Denies any dysuria, hematuria, frequency, or urgency. Patient denies any diarrhea or constipation Allergies: NKDA Past Surgical History: None Reported Social History: ETOH Abuse. Non smoker. No recreational drug use. <Leslie Hoffman - Last Filed: 10/11/16 13:10> - General History Source: Patient Exam Limitations: No Limitations - History of Present Illness Travel History: No Initial Comments: 10/11/16 11:11 <Kosta Julien - Last Filed: 10/12/16 09:46> - General Chief Complaint: Pain Stated Complaint: ABD PAIN Time Seen by Provider: 10/11/16 10:33 Past History <Leslie Hoffman - Last Filed: 10/11/16 13:10> - Past Medical History Asthma: Yes Diabetes: Yes (on insulin at ) Psychiatric Problems: Yes - Immunization History Immunization Up to Date: Yes - Psycho/Social/Smoking Cessation Hx Suicidal Ideation: No Smoking History: Never smoked Have you smoked in the past 12 months: No If you are a former smoker, when did you quit?: Approximately 6 years ago. Cigars Per Day: 0 Information on smoking cessation initiated: No Hx Alcohol Use: Yes (3 BOTTLES OF RUM) Drug/Substance Use Hx: Yes Substance Use Type: Alcohol Hx Substance Use Treatment: No <Kosta Julien - Last Filed: 10/12/16 09:46> - Past Medical History Allergies/Adverse Reactions: Allergies Allergy/AdvReac Type Severity Reaction Status Date / Time No Known Allergies Allergy Verified 10/11/16 10:43 Home Medications: Ambulatory Orders Multivitamins [Multivit ([facility] Formulary)] 1 tab PO DAILY #30 tab 09/28/16 Pantoprazole Sodium [Protonix -] 40 mg PO BID #60 bottle MDD 2 09/28/16 Thiamine HCl [Vitamin B1 -] 100 mg PO BID #60 tablet 09/28/16 Review of Systems - Review of Systems Able to Perform ROS?: Yes Comments:: 10/11/16 13:11 CONSTITUTIONAL: No reported: Fever, Chills, Diaphoresis, Generalized Weakness, Malaise, Loss of Appetite HEENT: No reported: Rhinorrhea, Nasal Congestion, Throat Pain, Throat Swelling, Difficulty Swallowing, Mouth Swelling, Ear Pain, Eye Pain, Visual Changes CARDIOVASCULAR: No reported: Chest Pain, Syncope, Palpitations, Irregular Heart Rate, Lightheadedness, Peripheral Edema RESPIRATORY: Present: +Shortness of breath No reported: Cough, SOB with Exertion, Orthopnea, Wheezing, Stridor, Hemoptysis GASTROINTESTINAL: Present: +Epigastric burning No reported: Abdominal Distension, Nausea, Vomiting, Diarrhea, Constipation, Melena, Hematochezia GENITOURINARY: No reported: Dysuria, Frequency, Urgency, Flank Pain, Genital Pain MUSCULOSKELETAL: No reported: Myalgia, Arthralgia, Joint Swelling, Back pain, Neck Pain SKIN: No reported: Rash, Itching, Pallor HEMEATOLOGIC/IMMUNOLOGIC: No reported: Easy Bleeding, Easy Bruising, Lymphadenopathy, Frequent infections ENDOCRINE: No reported: Unexplained Weight Gain, Unexplained Weight Loss, Heat Intolerance , Cold Intolerance NEUROLOGIC: No reported: Headache, Focal Weakness, Paresthesias, Vertigo, Lightheadedness, Unsteady Gait, Seizure, Mental Status Changes, Incontinence PSYCHIATRIC: No reported: Anxiety, Depression <Leslie Hoffman - Last Filed: 10/11/16 13:10> *Physical Exam - Vital Signs Last Vital Signs Temp Pulse Resp BP Pulse Ox 97.7 F 91 H 18 127/70 97 10/11/16 10:30 10/11/16 10:30 10/11/16 10:30 10/11/16 10:30 10/11/16 10:30 - Physical Exam Comments: 10/11/16 13:11 GENERAL: The patient is awake, alert, and fully oriented, Nontoxic - in no acute distress. HEAD: Normocephalic, atraumatic. EYES: extraocular movements intact, sclera anicteric, conjunctiva clear. ENT: Normal voice, Moist mucous membranes. NECK: Normal range of motion, supple LUNGS: Mild expiratory wheezing. No acute respiratory distress. No rhonchi, no rales. HEART: Regular rate and rhythm, without murmur, rub or gallop. ABDOMEN: Soft, nontender, normoactive bowel sounds. No guarding, no rebound.No CVA tenderness EXTREMITIES: Normal range of motion, no edema. No clubbing or cyanosis. No cords, erythema, or tenderness. NEUROLOGICAL: No facial asymmetry, Normal speech. PSYCH: Normal mood, normal affect. SKIN: Warm, Dry, normal turgor. <Leslie Hoffman - Last Filed: 10/11/16 13:10> - Vital Signs Last Vital Signs Temp Pulse Resp BP Pulse Ox 97.7 F 91 H 18 127/70 97 10/11/16 10:30 10/11/16 10:30 10/11/16 10:30 10/11/16 10:30 10/11/16 10:30 <Kosta Julien - Last Filed: 10/12/16 09:46> Heart Score/ECG Review - ECG Impressions Comment:: 10/11/16 12:32 Twelve-lead EKG was performed and reviewed by me. There is normal sinus rhythm with a normal rate. Rate of 80 The axis is normal. The intervals are normal. There is normal R wave progression There are no ST or T wave abnormalities. Impression: Normal twelve-lead EKG <Kosta Julien - Last Filed: 10/12/16 09:46> ED Treatment Course - LABORATORY CBC & Chemistry Diagram: 10/11/16 11:07 10/11/16 11:07 - ADDITIONAL ORDERS Additional order review: Laboratory Results 10/11/16 11:07 Sodium 142 Potassium 3.9 Chloride 102 Carbon Dioxide 25 Anion Gap 15 BUN 21 H D Creatinine 1.0 D Creat Clearance w eGFR > 60 Random Glucose 96 Calcium 8.2 L Total Bilirubin 0.3 D AST 41 H D ALT 51 D Alkaline Phosphatase 79 Total Protein 7.4 Albumin 3.6 Lipase 254 10/11/16 11:07 RBC 4.22 MCV 97.4 H MCHC 34.2 RDW 13.3 MPV 7.3 L Neutrophils % Y Lymphocytes % Y - Medications Given in the ED: ED Medications Discontinued Medications Generic Name Dose Route Start Last Admin Trade Name Brock PRN Reason Stop Dose Admin Al Hydroxide/Mg Hydroxide 30 ml 10/11/16 10:49 10/11/16 11:43 Mylanta Suspension - PO 10/11/16 10:50 30 ml ONCE ONE Administration Famotidine/Sodium Chloride 20 50 mls @ 100 mls/hr 10/11/16 10:49 10/11/16 11:39 mg/ Miscellaneous IVPB 10/11/16 11:18 100 mls/hr ONCE ONE Administration Ondansetron HCl 4 mg 10/11/16 10:49 10/11/16 11:39 Zofran Injection IVPB 10/11/16 10:50 4 mg ONCE ONE Administration <Leslie Hoffman - Last Filed: 10/11/16 13:10> - LABORATORY CBC & Chemistry Diagram: 10/11/16 11:07 10/11/16 11:07 <Kosta Julien - Last Filed: 10/12/16 09:46> Medical Decision Making - Medical Decision Making 10/11/16 11:11 51y F hx of etoh abuse, depression presents with complaint of abdominal pain and desire for detox. pt states his abd pain is epgiastric, LQ is burning in nature but has it for several months ,worse with drinking, w nausea/v with occasional blood streaked stputum w/o any diarrhea, melena, bpr. on exam the pt is well appearing in no distresss will ck albs to r/o pancreatitis, will givep epcid/maalox suspect etoh gastritsi if labs neg will send pt to [facility] for detox A portion of this note was documented by scribe services under my direction. I have reviewed the details of the note, within reason, and agree with the documentation with the following case summary and management plan written by me 10/11/16 14:11 pt feeling improved pts abd pain improved. suspect his sypmtoms secondary to gastritis. supportive mangement at home. will dc the pt to detox return precautions were discussed I discussed the physical exam findings, ancillary test results and final diagnoses with the patient. I answered all of the patient's questions. The patient was satisfied with the care received and felt comfortable with the discharge plan and treatment plan. The patient will call their primary care physician within 24 hours to arrange follow-up and will return to the Emergency Department with any new, persistent or worsening symptoms. <Kosta Julien - Last Filed: 10/12/16 09:46> *DC/Admit/Observation/Transfer - Attestations Scribe Attestion: 10/11/16 13:12 Documentation prepared by Leslie Hoffman, acting as rn medical surgical for Kosta Julien MD. <Leslie Hoffman - Last Filed: 10/11/16 13:10> - Discharge Dispostion Admit: No <Kosta Julien - Last Filed: 10/12/16 09:46> Diagnosis at time of Disposition: Alcoholism Alcoholic gastritis Qualifiers: Chronicity: acute Gastritis bleeding: without bleeding Qualified Code(s): K29.20 - Alcoholic gastritis without bleeding - Discharge Dispostion Disposition: HOME Condition at time of disposition: Improved - Referrals Referrals: [facility] [Provider Group] - Patient Instructions Printed Discharge Instructions: DI for Alcoholic Gastritis Additional Instructions: stop drinking alcohol go to [facility] for detox Return to the emergency department immediately with ANY new, persistent or worsening symptoms including any recurrent abdominal pain, fevers, chills, inability to tolerate oral intake or any other concerns. Stay away from alcohol, spicy foods, caffeine, acidic/sour foods. Take maalox if you have burning for relief. Continue using zantac every night for one week. You MUST call and follow up with your doctor and electric appliance installer within 5 days for further evaluation of your symptoms. Your emergency department visit is not complete without a followup with your doctor for reevaluation. Results were discussed with you. Please make sure your doctor reviews the results of your emergency evaluation. Print Language: SETSWANA
[2016-10-11] MEDS ORDERED: MAG HYDROX/AL HYDROX/SIMETH 30 ML UNIT-DOSE CUP ONE (11:40)
[2016-10-11 11:53] LABS: MCH 33.4 pg (25.7-33.7); MCHC 34.2 g/dl (32.0-35.9); MEAN CELL VOLUME 97.4 fl (80-96); MEAN PLT VOLUME 7.3 fl (7.5-11.1); PLATELET COUNT 219 K/MM3 (134-434); RDW 13.3 % (11.9-15.9); WHITE BLOOD COUNT 5.6 K/mm3 (4.0-10.0)
[2016-10-11 11:59] LABS: ALBUMIN 3.6 g/dl (3.4-5.0); ALK PHOS 79 U/L (45-117); ANION GAP 15 (8-16); BILIRUBIN,TOTAL 0.3 mg/dL (0.2-1.0); CALCIUM 8.2 mg/dL (8.5-10.1); CO2 25 mmol/L (21-32); COCKROFT - GAULT 88.86; GLUCOSE,RANDOM 96 mg/dL (74-106); SGOT/AST 41 U/L (15-37); SGPT/ALT 51 U/L (12-78); TOT PROT 7.4 g/dl (6.4-8.2)
--- NOTE | 2016-10-11 13:46 | EKG ---
Test Reason : Blood Pressure : / mmHG Vent. Rate : 080 BPM Atrial Rate : 080 BPM P-R Int : 144 ms QRS Dur : 104 ms QT Int : 384 ms P-R-T Axes : 052 008 035 degrees QTc Int : 442 ms NORMAL SINUS RHYTHM NORMAL ECG WHEN COMPARED WITH ECG OF 24-SEP-2016 11:35, NO SIGNIFICANT CHANGE WAS FOUND Confirmed by ELZA MORTON MD ([id number]) on 10/11/2016 1:46:19 PM Referred By: Confirmed By:ELZA MORTON MD
[2016-10-11 15:17] VITALS: BP 150/68; PULSE 72
[2016-10-11 15:36] LABS: PLATELET ESTIMATE ADEQUATE (NORMAL)
== END 2016-10-11 15:20 | disposition home or self-care (01) ==
LOC: JER 10:27
PROC: 3E033GC Introduction of Other Therapeutic Substance into Peripheral Vein, Percutaneous Approach (ICD-10-PCS; principal; 2016-10-11)
DX: K29.20 Alcoholic gastritis without bleeding (principal); F10.20 Alcohol dependence, uncomplicated; E11.9 Type 2 diabetes mellitus without complications; J45.909 Unspecified asthma, uncomplicated; K75.9 Inflammatory liver disease, unspecified; Z79.4 Long term (current) use of insulin; F99 Mental disorder, not otherwise specified
CPT/HCPCS: 36415; 80053; 83690; 85025; 93005; 93010; 99283-25

== ENCOUNTER 2016-10-12 15:06 | Emergency (ER) | payer OTHER ==
[2016-10-12 15:23] VITALS: BMI 23.6
--- NOTE | 2016-10-12 15:50 | PDOC ---
History of Present Illness - General History Source: Patient Exam Limitations: No Limitations - History of Present Illness Initial Comments: 10/12/16 16:29 The patient is a 51 year old male, with a significant past medical history of ETOH abuse, hepatitis, asthma, and diabetes, who presents to the emergency department reporting thoughts of hurting himself since yesterday. Patient reports he presented to the ED yesterday with abdominal pain secondary to drinking. Patient states he was discharged and given paperwork to go to [facility] for detox. After arriving at [facility], patient reports he overheard the employees at [facility] say there arent any beds available. Patient says he did not want to wait and left. Patient reports he was admitted at [facility] and [facility] several times for detox. He states the last time he was at [facility] he brought in paperwork from his Psychiatrist saying that the patient wouldn't be able to treat him due to excess drinking. The patient currently denies any nausea, vomiting, diarrhea, constipation, or changes in urination patterns. The patient denies any fever, chills, cough, headache, or dizziness. The patient denies any chest pain, shortness of breath, diaphoresis, or palpitations. Patient reports he is homeless. Allergies: NKDA Surgical History: None reported. Social History: ETOH abuse. Non smoker. No recreational drug use <Leslie Hoffman - Last Filed: 10/12/16 16:32> <Drake Ozuna - Last Filed: 10/12/16 17:09> - General Chief Complaint: Alcohol intoxication Stated Complaint: VOMITING Time Seen by Provider: 10/12/16 15:49 Past History <Leslie Hoffman - Last Filed: 10/12/16 16:32> - Past Medical History Asthma: Yes Diabetes: Yes (on insulin at ) Psychiatric Problems: Yes - Immunization History Immunization Up to Date: Yes - Psycho/Social/Smoking Cessation Hx Suicidal Ideation: Yes Smoking History: Never smoked Have you smoked in the past 12 months: No If you are a former smoker, when did you quit?: Approximately 6 years ago. Cigars Per Day: 0 Hx Alcohol Use: Yes (3 BOTTLES OF RUM, beer) Drug/Substance Use Hx: Yes Substance Use Type: Alcohol Hx Substance Use Treatment: No <Drake Ozuna - Last Filed: 10/12/16 17:09> - Past Medical History Allergies/Adverse Reactions: Allergies Allergy/AdvReac Type Severity Reaction Status Date / Time No Known Allergies Allergy Verified 10/12/16 15:24 Home Medications: Ambulatory Orders Multivitamins [Multivit ([facility] Formulary)] 1 tab PO DAILY #30 tab 09/28/16 Pantoprazole Sodium [Protonix -] 40 mg PO BID #60 bottle MDD 2 09/28/16 Thiamine HCl [Vitamin B1 -] 100 mg PO BID #60 tablet 09/28/16 Review of Systems - Review of Systems Able to Perform ROS?: Yes Comments:: 10/12/16 16:29 GENERAL/CONSTITUTIONAL: No fever or chills. No weakness. HEAD, EYES, EARS, NOSE AND THROAT: No change in vision. No ear pain or discharge. No sore throat. CARDIOVASCULAR: No chest pain or shortness of breath. RESPIRATORY: No cough, wheezing, or hemoptysis. GASTROINTESTINAL: No nausea, vomiting, diarrhea or constipation. GENITOURINARY: No dysuria, frequency, or change in urination. MUSCULOSKELETAL: No joint or muscle swelling or pain. No neck or back pain. SKIN: No rash NEUROLOGIC: No headache, vertigo, loss of consciousness, or change in strength/ sensation. ENDOCRINE: No increased thirst. No abnormal weight change. HEMATOLOGIC/LYMPHATIC: No anemia, easy bleeding, or history of blood clots. ALLERGIC/IMMUNOLOGIC: No hives or skin allergy. PSYCHIATRIC: Yes: +Suicidal ideation. No homicidal ideations. <Leslie Hoffman - Last Filed: 10/12/16 16:32> *Physical Exam - Vital Signs Last Vital Signs Temp Pulse Resp BP Pulse Ox 98.2 F 107 H 20 110/72 96 10/12/16 15:18 10/12/16 15:18 10/12/16 15:18 10/12/16 15:18 10/12/16 15:18 - Physical Exam Comments: 10/12/16 16:31 GENERAL: Awake, alert, and fully oriented, in no acute distress HEAD: No signs of trauma EYES: PERRLA, EOMI, sclera anicteric, conjunctiva clear ENT: Auricles normal inspection, hearing grossly normal, nares patent, oropharynx clear without exudates. Moist mucosa NECK: Normal ROM, supple, no lymphadenopathy, JVD, or masses LUNGS: Breath sounds equal, clear to auscultation bilaterally. No wheezes, and no crackles HEART: Regular rate and rhythm, normal S1 and S2, no murmurs, rubs or gallops ABDOMEN: Soft, nontender, normoactive bowel sounds. No guarding, no rebound. No masses EXTREMITIES: Normal range of motion, no edema. No clubbing or cyanosis. No cords, erythema, or tenderness NEUROLOGICAL: Cranial nerves II through XII grossly intact. Normal speech, normal gait SKIN: Warm, Dry, normal turgor, no rashes or lesions noted. <Leslie Hoffman - Last Filed: 10/12/16 16:32> - Vital Signs Last Vital Signs Temp Pulse Resp BP Pulse Ox 98.2 F 107 H 20 110/72 96 10/12/16 15:18 10/12/16 15:18 10/12/16 15:18 10/12/16 15:18 10/12/16 15:18 <Drake Ozuna - Last Filed: 10/12/16 17:09> ED Treatment Course - LABORATORY CBC & Chemistry Diagram: 10/12/16 16:40 10/12/16 16:40 <Drake Ozuna - Last Filed: 10/12/16 17:09> Medical Decision Making - Medical Decision Making 10/12/16 17:[address] Moore <Drake Ozuna - Last Filed: 10/12/16 17:09> *DC/Admit/Observation/Transfer - Attestations Scribe Attestion: 10/12/16 16:30 Documentation prepared by Leslie Hoffman, acting as medical physics teacher for Drake Ozuna DO. <Leslie Hoffman - Last Filed: 10/12/16 16:32> - Attestations Physician Attestion: 10/12/16 15:49 I, Dr. Drake Ozuna, attest that this document has been prepared under my direction and personally reviewed by me in its entirety. I further attest, that it accurately reflects all work, treatment, procedures and medical decision -making performed by me. <Drake Ozuna - Last Filed: 10/12/16 17:09> - Referrals Referrals: Felipe Calderon [Primary Care Provider] -
[2016-10-12] MEDS ORDERED: FOLIC ACID INJECTION - 1 MG, THIAMINE HCL 100 MG, MULTIVIT INJECTION ADULT 10 ML in SOD... IVPB ONE (16:07)
[2016-10-12 17:05] LABS: BASOPHIL 2.9 % (0-2.0); EOSINOPHIL 1.3 % (0-4.5); MCH 33.1 pg (25.7-33.7); MCHC 34.2 g/dl (32.0-35.9); MEAN CELL VOLUME 96.8 fl (80-96); MEAN PLT VOLUME 7.6 fl (7.5-11.1); NEUTROPHILS 66.7 % (42.8-82.8); PLATELET COUNT 246 K/MM3 (134-434); RDW 13.2 % (11.9-15.9); WHITE BLOOD COUNT 5.3 K/mm3 (4.0-10.0)
[2016-10-12 17:39] LABS: ALBUMIN 3.9 g/dl (3.4-5.0); ALK PHOS 82 U/L (45-117); ANION GAP 18 (8-16); BILIRUBIN,TOTAL 0.6 mg/dL (0.2-1.0); CALCIUM 8.4 mg/dL (8.5-10.1); CO2 23 mmol/L (21-32); COCKROFT - GAULT 80.78; CREATININE 1.1 mg/dL (0.7-1.3); GLUCOSE,RANDOM 95 mg/dL (74-106); SGOT/AST 79 U/L (15-37); SGPT/ALT 68 U/L (12-78); TOT PROT 7.5 g/dl (6.4-8.2)
[2016-10-12] MEDS ORDERED: DEXTROSE 50%-WATER 50 ML VIAL IVPUSH ONE (17:51)
[2016-10-12 20:44] LABS: URINE APPEARANCE CLEAR; URINE BILIRUBIN NEGATIVE (NEGATIVE); URINE BLOOD NEGATIVE (NEGATIVE); URINE COLOR YELLOW; URINE GLUCOSE (UA) 1+ (NEGATIVE); URINE KETONE NEGATIVE (NEGATIVE); URINE LEUK ESTERASE NEGATIVE (NEGATIVE); URINE NITRITE NEGATIVE (NEGATIVE); URINE PROTEIN NEGATIVE (NEGATIVE); URINE UROBILINOGEN NEGATIVE E.U./dl (0.2-1.0)
[2016-10-12 21:00] LABS: URINE MARIJUANA THC NEGATIVE ng/ml (CUTOFF=50)
--- NOTE | 2016-10-12 21:51 | PN ---
Mental Health Exam - Mental Status Exam Alert and Oriented to: Time, Place Cognitive Function: Impaired Patient Appearance: Unkempt, Disheveled (unshaven) Mood: Anxious, Apprehensive Affect: Mood Congruent, Constricted Patient Behavior: Passive, Fatigued, Asleep (easily awoke. ), Cooperative Speech Pattern: Unclear (broken egyptian and nepali. ), Slurred Voice Loudness: Mildly Soft/Quiet Thought Process: Circumstantial, Disorganized Thought Disorder: Not Present Hallucinations: None Suicidal Ideation: Denies, No Plan Homicidal Ideation: Denies, No Plan Insight/Judgement: Poor (drinking quart and 2 beers yesterday, then showing up at [facility]. ) Sleep: Difficulty falling asleep Appetite: Weight loss (30 lbs since last year. ) Muscle strength/Tone: Normal
--- NOTE | 2016-10-12 21:58 | PN ---
Progress Note (short form) - Note Progress Note: called to see client in bed 6 ER where he is seen after ingestion of large amount of alcohol blood level 330.7. , ast 79 and alt 68. He was turned away from [facility] due to intoxication. Urine tox pos for benzodiazepines. Client is poor historian does not recall 3 psych meds he takes except 2 for sleep and 1 tab in the am. In past treated at [facility]. Followed at outpatient psych as mandated by Probation for last 3 years now. He is homeless at present. Plan denies currently any plan to harm self. Follow up with psych in [facility] once sober. Spoke with SERGEY Lizama and covering dr Constantino, Thanks for consult.
[2016-10-12 22:19] VITALS: BP 107/71; PULSE 78; TEMP 97.7
--- NOTE | 2016-10-12 22:23 | PDOC ---
*Physical Exam - Vital Signs Last Vital Signs Temp Pulse Resp BP Pulse Ox 97.7 F 78 18 107/71 96 10/12/16 22:18 10/12/16 22:18 10/12/16 22:18 10/12/16 22:18 10/12/16 15:18 - Physical Exam Comments: 10/12/16 22:22 Patient was endorsed to me by Dr. Ozuna. Patient was seen and evaluated by ELIZABETH Granados of psychiatry and cleared for detox. Will transfer patient to [facility] for evaluation and inpatient detox for alcohol abuse. ED Treatment Course - LABORATORY CBC & Chemistry Diagram: 10/12/16 16:40 10/12/16 16:40 - ADDITIONAL ORDERS Additional order review: Laboratory Results 10/12/16 10/12/16 10/12/16 20:00 20:00 16:40 Sodium Potassium Chloride Carbon Dioxide Anion Gap BUN Creatinine Creat Clearance w eGFR Random Glucose Calcium Total Bilirubin AST ALT Alkaline Phosphatase Total Protein Albumin Lipase Urine Color Yellow Urine Appearance Clear Urine pH 5.0 Ur Specific Vera 1.015 Urine Protein Negative Urine Glucose (UA) 1+ H Urine Ketones Negative Urine Blood Negative Urine Nitrite Negative Urine Bilirubin Negative Urine Urobilinogen Negative Ur Leukocyte Esterase Negative Opiates Screen Negative Methadone Screen Negative Barbiturate Screen Negative Phencyclidine Screen Negative Ur Amphetamines Screen Negative MDMA (Ecstasy) Screen Negative Benzodiazepines Screen Positive Cocaine Screen Negative U Marijuana (THC) Screen Negative Alcohol, Quantitative 330.7 H* 10/12/16 16:40 Sodium 140 Potassium 4.2 Chloride 99 Carbon Dioxide 23 Anion Gap 18 H BUN 24 H Creatinine 1.1 Creat Clearance w eGFR > 60 Random Glucose 95 Calcium 8.4 L Total Bilirubin 0.6 D AST 79 H D ALT 68 D Alkaline Phosphatase 82 Total Protein 7.5 Albumin 3.9 Lipase 216 Urine Color Urine Appearance Urine pH Ur Specific Vera Urine Protein Urine Glucose (UA) Urine Ketones Urine Blood Urine Nitrite Urine Bilirubin Urine Urobilinogen Ur Leukocyte Esterase Opiates Screen Methadone Screen Barbiturate Screen Phencyclidine Screen Ur Amphetamines Screen MDMA (Ecstasy) Screen Benzodiazepines Screen Cocaine Screen U Marijuana (THC) Screen Alcohol, Quantitative 10/12/16 16:40 RBC 4.42 MCV 96.8 H MCHC 34.2 RDW 13.2 MPV 7.6 Neutrophils % 66.7 Lymphocytes % 20.3 Monocytes % 8.8 Eosinophils % 1.3 Basophils % 2.9 H - Medications Given in the ED: ED Medications Discontinued Medications Generic Name Dose Route Start Last Admin Trade Name Brock PRN Reason Stop Dose Admin Dextrose 100 ml 10/12/16 17:51 10/12/16 17:53 D50w (Vial) - IVPUSH 10/12/16 17:52 100 ml NOW ONE Administration *DC/Admit/Observation/Transfer Diagnosis at time of Disposition: Alcoholism, Suicidal ideation - Discharge Dispostion Disposition: HOME Condition at time of disposition: Stable - Referrals Referrals: Felipe Calderon [Primary Care Provider] - - Patient Instructions Printed Discharge Instructions: DI for Alcohol Abuse, DI for Suicidal Ideation- Adult - Post Discharge Activity
[2016-10-12 22:36] LABS: INR 1.04 (0.82-1.09); PROTHROMBIN TIME (PATIENT) 11.5 SEC (9.98-11.88)
== END 2016-10-12 22:33 | disposition home or self-care (01) ==
LOC: JER 15:06
PROC: 3E033GC Introduction of Other Therapeutic Substance into Peripheral Vein, Percutaneous Approach (ICD-10-PCS; principal; 2016-10-12)
PROC: 3E033GC Introduction of Other Therapeutic Substance into Peripheral Vein, Percutaneous Approach (ICD-10-PCS; 2016-10-12)
DX: F10.20 Alcohol dependence, uncomplicated (principal); R45.851 Suicidal ideations; E11.9 Type 2 diabetes mellitus without complications; Z79.4 Long term (current) use of insulin; J45.909 Unspecified asthma, uncomplicated
CPT/HCPCS: 36415; 80053; 80307; 81003; 83690; 85025; 85610; 96365; 96366; 96375; 99284-25

== ENCOUNTER 2016-11-09 10:37 | Inpatient (IN) | payer OTHER ==
[2016-11-09 11:08] VITALS: BMI 21.2
--- NOTE | 2016-11-09 14:06 | HP ---
CIWA Score - CIWA Score Nausea/Vomitin Muscle Tremors: 4-Moderate,w/Arms Extend Anxiety: 3 Agitation: 5 Paroxysmal Sweats: 3 Orientation: 0-Oriented Tacttile Disturbances: 0-None Auditory Disturbances: 0-None Visual Disturbances: 0-None Headache: 0-None Present CIWA-Ar Total Score: 18 Admission ROS BHS - HPI Chief Complaint: I need to be here for detox. Allergies/Adverse Reactions: Allergies Allergy/AdvReac Type Severity Reaction Status Date / Time No Known Allergies Allergy Verified 11/09/16 14:01 History of Present Illness: pt is a Portuguese speaking male with a long history of alcohol dependence seeking detox for treatment. Exam Limitations: Language Barrier (slovak speaking) - Ebola screening Have you traveled outside of the country in the last 21 days: No Have you had contact with anyone from an Ebola affected area: No Have you been sick,other than usual withdrawal symptoms: No Do you have a fever: No - Review of Systems Constitutional: Chills, Diaphoresis, Loss of Appetite, Changes in sleep EENT: reports: Tearing Respiratory: reports: No Symptoms reported Cardiac: reports: Lightheadedness, Syncope GI: reports: Diarrhea, Poor Appetite, Poor Fluid Intake, Indigestion : reports: No Symptoms Reported Musculoskeletal: reports: No Symptoms Reported Integumentary: reports: Flushing, Sweating Neuro: reports: Tingling, Tremors Endocrine: reports: Excessive Sweating, Flushing, Intolerance to Cold, Intolerance to Heat Hematology: reports: No Symptoms Reported Psychiatric: reports: Judgement Intact, Mood/Affect Appropiate, Orientated x3, Agitated, Anxious Other Systems: Reviewed and Negative Patient History - Patient Medical History Hx Anemia: No Hx Asthma: Yes Hx Chronic Obstructive Pulmonary Disease (COPD): No Hx Cancer: No Hx Cardiac Disorders: No Hx Congestive Heart Failure: No Hx Hypertension: No Hx Hypercholesterolemia: No Hx Pacemaker: No HX Cerebrovascular Accident: No Hx Seizures: No Hx Dementia: No Hx Diabetes: No Hx Gastrointestinal Disorders: Yes Hx Liver Disease: No Hx Genitourinary Disorders: No Hx Sexually Transmitted Disorders: No Hx Renal Disease (ESRD): No Hx Thyroid Disease: No Hx Human Immunodeficiency Virus (HIV): No Hx Hepatitis C: No Hx Depression: Yes Hx Suicide Attempt: Yes (overdose) Hx Bipolar Disorder: No Hx Schizophrenia: No - Patient Surgical History Past Surgical History: No Hx Neurologic Surgery: No Hx Cataract Extraction: No Hx Cardiac Surgery: No Hx Lung Surgery: No Hx Breast Surgery: No Hx Breast Biopsy: No Hx Abdominal Surgery: No Hx Appendectomy: No Hx Cholecystectomy: No Hx Genitourinary Surgery: No Hx Section: No Hx Orthopedic Surgery: No Anesthesia Reaction: No - PPD History Previous Implant?: Yes Documented Results: Negative w/o proof PPD to be Administered?: Yes - Reproductive History Patient is a Female of Child Bearing Age (11 -55 yrs old): No - Smoking Cessation Smoking history: Never smoked Have you smoked in the past 12 months: No If you are a former smoker, when did you quit?: Approximately 6 years ago. Cigars Per Day: 0 Hx Chewing Tobacco Use: No Initiated information on smoking cessation: No - Substance & Tx. History Hx Alcohol Use: Yes Hx Substance Use: No Substance Use Type: Alcohol Hx Substance Use Treatment: Yes - Substances Abused Alcohol Route: Oral Frequency: Daily Alcohol-tequila/sherif/beer Route: Oral Frequency: Daily Amount used: 2 pts./2-6 pks. Age of first use: 19 Date of Last Use: 11/08/16 Family Disease History - Family Disease History Family Disease History: Heart Disease: Mother (), Other: Father ( ), Mother, Brother ( suicid) Admission Physical Exam S - Vital Signs Vital Signs: Vital Signs - 24 hr 11/09/16 11:06 Temperature 96.8 F L Pulse Rate 108 H Respiratory 18 Rate Blood Pressure 114/86 - Physical General Appearance: Yes: Appropriately Dressed, Moderate Distress, Tremorous, Irritable, Sweating, Anxious HEENTM: Yes: Within Normal Limits, Normal Voice Respiratory: Yes: Lungs Clear, Normal Breath Sounds, No Respiratory Distress Neck: Yes: Within Normal Limits Breast: Yes: Within Normal Limits Cardiology: Yes: Regular Rhythm, Regular Rate, S1, S2 Abdominal: Yes: Normal Bowel Sounds, Non Tender, Soft Genitourinary: Yes: Within Normal Limits Back: Yes: Normal Inspection Musculoskeletal: Yes: full range of Motion Extremities: Yes: Normal Capillary Refill, Normal Inspection, Non-Tender, Tremors Neurological: Yes: Fully Oriented, Alert, Normal Response Integumentary: Yes: Normal Color, Diaphoresis Lymphatic: Yes: Within Normal Limits - Diagnostic (1) Alcoholic cirrhosis of liver without ascites Current Visit: Yes Status: Suspected (2) Alcohol dependence with uncomplicated withdrawal Current Visit: Yes Status: Chronic (3) Syncope Current Visit: Yes Status: Chronic Qualifiers: Syncope type: unspecified Qualified Code(s): R55 - Syncope and collapse Cleared for Admission [facility] - Detox or Rehab [facility] Level of Care: Medically Managed Detox Regimen/Protocol: Librium S Breath Alcohol Content Breath Alcohol Content: 0 Urine Drug Screen - Results Drug Screen Negative: No Urine Drug Screen Results: BZO-Benzodiazepines, OXY-Oxycodone
[2016-11-09] MEDS ORDERED: diphenhydrAMINE HCL 50 MG CAPSULE PO PRN (14:33)
[2016-11-09] MEDS ORDERED: P-EPHED 60MG/TRIPROLIDI 2.5MG TABLET PO PRN (14:33)
[2016-11-09] MEDS ORDERED: MAGNESIUM HYDROX 2400MG/30ML ORAL SUSPENSION 30 ML CUP PO PRN (14:33)
[2016-11-09] MEDS ORDERED: MAG HYDROX/AL HYDROX/SIMETH 30 ML UNIT-DOSE CUP PO PRN (14:33)
[2016-11-09] MEDS ORDERED: chlordiazePOXIDE HCL 25 MG CAPSULE PO PRN (14:33)
[2016-11-09] MEDS ORDERED: hydrOXYzine PAMOATE 50 MG CAPSULE (FP) PO PRN (14:33)
[2016-11-09] MEDS ORDERED: guaiFENesin/D-METHORPHAN HB 10 ML UNIT-DOSE CUPS PO PRN (14:33)
[2016-11-09] MEDS ORDERED: MAGNESIUM CITRATE 300 ML BOTTLE PO PRN (14:33)
[2016-11-09] MEDS ORDERED: LOPERAMIDE HCL 2 MG CAPSULE PO PRN (14:33)
[2016-11-09] MEDS ORDERED: MENTHOL/PHENOL 1 EACH UD MM PRN (14:33)
[2016-11-09] MEDS ORDERED: chlordiazePOXIDE HCL 25 MG CAPSULE PO ONE (15:23)
--- NOTE | 2016-11-09 16:14 | CONSULT ---
[facility] Psychiatric Consult - Data Date of interview: 11/09/16 Admission source: [facility] Identifying data: First admission to [facility] for this 51 y/o male seeking detox treatment for alcohol dependence.Patient is single,father of two, homeless,unemployed and supported on Public Assistance. Substance Abuse History: - Smoking Cessation. Smoking history: Never smoked. Have you smoked in the past 12 months: No. If you are a former smoker, when did you quit?: Approximately 6 years ago. Cigars Per Day: 0. Hx Chewing Tobacco Use: No. Initiated information on smoking cessation: No. - Substance & Tx. History. Hx Alcohol Use: Yes. Hx Substance Use: No. Substance Use Type : Alcohol. Hx Substance Use Treatment: Yes. - Substances Abused. Alcohol. Route: Oral. Frequency: Daily. Alcohol-tequila/sherif/beer. Route: Oral. Frequency: Daily. Amount used: 2 pts./2-6 pks. Age of first use: 19. Date of Last Use: 11/08/16. Confirmed by patient. Medical History: Bronchial asthma,cirrhosis of liver and history of nephrolithiasis. Psychiatric History: Patient is a poor historian (no recall of medications or name of OPD clinic).Mr Noemy reports a history of multiple psychiatric hospitalizations.Known to [facility] and [facility].He indicates that he gets his outpatient psychiatric services at a " place [facility] ".Diagnosed with MDD and Anxiety Disorder (self-report).Last psychiatric hospitalization was at [facility] in 2016 (unclear circumstances).Patient denies history of suicide attempts. Physical/Sexual Abuse/Trauma History: Patient denies history of abuse. Additional Comment: Urine Drug Screen Results: BZO-Benzodiazepines, OXY- Oxycodone.Noted Mental Status Exam - Mental Status Exam Alert and Oriented to: Time, Place, Person Cognitive Function: Grossly Intact Patient Appearance: Well Groomed Mood: Nervous, Withdrawn, Anxious Affect: Constricted Patient Behavior: Fatigued, Cooperative Speech Pattern: Clear (in wolof) Voice Loudness: Normal Thought Process: Goal Oriented Thought Disorder: Not Present Hallucinations: Denies Suicidal Ideation: Denies Homicidal Ideation: Denies Insight/Judgement: Poor Sleep: Poorly, Difficulty falling asleep Appetite: Good Muscle strength/Tone: Normal Gait/Station: Normal Psychiatric Findings - Problem List ([place] 1, 2,3) (1) Alcohol dependence with uncomplicated withdrawal Current Visit: Yes Status: Acute (2) Alcohol-induced mood disorder Current Visit: Yes Status: Acute (3) Alcoholic cirrhosis of liver without ascites Current Visit: Yes Status: Suspected (4) Insomnia Current Visit: Yes Status: Acute - Initial Treatment Plan Initial Treatment Plan: Psychoeducation.Detoxification in progress.Human Factors Ergonomist made contact with [facility],with patient's verbal authorization,at to collect information about his current medications.Records indicates that scripts for haloperidol,citalopram and remeron were last issued to this patient in October 2015.Will order ambien to address insomnia.Observation.
[2016-11-09] MEDS: chlordiazePOXIDE HCL 25 MG CAPSULE PO SCH ×2 (17:15→22:12)
[2016-11-09] MEDS: ZOLPIDEM TARTRATE 5 MG TABLET PO PRN (22:13)
[2016-11-09] MEDS: THIAMINE HCL 100 MG TABLET (FP) PO SCH (22:13)
[2016-11-10 00:11] LABS: URINE APPEARANCE CLEAR; URINE BILIRUBIN NEGATIVE (NEGATIVE); URINE BLOOD NEGATIVE (NEGATIVE); URINE COLOR AMBER; URINE GLUCOSE (UA) NEGATIVE (NEGATIVE); URINE KETONE NEGATIVE (NEGATIVE); URINE LEUK ESTERASE NEGATIVE (NEGATIVE); URINE NITRITE NEGATIVE (NEGATIVE); URINE UROBILINOGEN NEGATIVE E.U./dl (0.2-1.0)
[2016-11-10 00:12] LABS: URINE PROTEIN 1+ (NEGATIVE)
[2016-11-10 00:24] LABS: URINE BACTERIA RARE /hpf (NONE SEEN); URINE HYALINE CAST 4 /lpf; URINE MUCUS FEW; URINE RBC 1 /hpf (0-3); URINE WBC 1 /hpf (3-5)
[2016-11-10] MEDS: chlordiazePOXIDE HCL 25 MG CAPSULE PO SCH ×4 (05:35→22:09)
--- NOTE | 2016-11-10 10:01 | EKG ---
Test Reason : Blood Pressure : / mmHG Vent. Rate : 064 BPM Atrial Rate : 064 BPM P-R Int : 124 ms QRS Dur : 106 ms QT Int : 428 ms P-R-T Axes : 027 024 037 degrees QTc Int : 441 ms NORMAL SINUS RHYTHM NON-SPECIFIC INTRA-VENTRICULAR CONDUCTION DELAY Confirmed by JANAE MCCLENDON MD ([id number]) on 11/10/2016 10:01:18 AM Referred By: Confirmed By:JANAE MCCLENDON MD
[2016-11-10] MEDS: PRENATAL VITAMINS W/ FOLIC ACID TABLET (FP) PO SCH (10:14)
[2016-11-10 10:26] LABS: MCH 33.6 pg (25.7-33.7); MCHC 33.7 g/dl (32.0-35.9); MEAN CELL VOLUME 99.9 fl (80-96); MEAN PLT VOLUME 9.6 fl (7.5-11.1); PLATELET COUNT 91 K/MM3 (134-434); WHITE BLOOD COUNT 5.4 K/mm3 (4.0-10.0)
[2016-11-10 11:01] LABS: ALBUMIN 3.6 g/dl (3.4-5.0); ALK PHOS 261 U/L (45-117); ANION GAP 12 (8-16); CALCIUM 9.1 mg/dL (8.5-10.1); CO2 29 mmol/L (21-32); CREATININE 0.9 mg/dL (0.7-1.3); GLUCOSE,RANDOM 121 mg/dL (74-106); SGOT/AST 160 U/L (15-37); SGPT/ALT 167 U/L (12-78); TOT PROT 7.3 g/dl (6.4-8.2)
[2016-11-10] MEDS ORDERED: ONDANSETRON *ODT* 4 MG TABLET SL PRN (11:53)
--- NOTE | 2016-11-10 14:16 | PN ---
S CIWA - CIWA Score Nausea/Vomitin Muscle Tremors: 4-Moderate,w/Arms Extend Anxiety: 3 Agitation: 3 Paroxysmal Sweats: 3 Orientation: 0-Oriented Tacttile Disturbances: 0-None Auditory Disturbances: 0-None Visual Disturbances: 2-Mild Sensitivity Headache: 0-None Present CIWA-Ar Total Score: 20 BHS Progress Note (SOAP) Subjective: Interrupted sleep, Sweating, Tremors, Vomiting, Stomach Cramping. Objective: PT. A & O X 3. NO ACUTE DISTRESS. 11/10/16 14:12 Vital Signs Temperature 98.3 F 11/10/16 13:59 Pulse Rate 100 H 11/10/16 13:59 Respiratory Rate 20 11/10/16 13:59 Blood Pressure 118/82 11/10/16 13:59 O2 Sat by Pulse Oximetry (%) Laboratory Tests 11/09/16 11/10/16 11/10/16 20:20 06:10 06:10 WBC 5.4 RBC 3.95 L Hgb 13.3 Hct 39.5 MCV 99.9 H MCHC 33.7 RDW 13.0 Plt Count 91 L D MPV 9.6 D Sodium 137 Potassium 3.6 Chloride 96 L Carbon Dioxide 29 D Anion Gap 12 BUN 14 D Creatinine 0.9 Creat Clearance w eGFR > 60 Random Glucose 121 H D Calcium 9.1 Total Bilirubin 2.0 H D AST 160 H D ALT 167 H D Alkaline Phosphatase 261 H D Total Protein 7.3 Albumin 3.6 Urine Color [place] Urine Appearance Clear Urine pH 6.0 Ur Specific [place] 1.020 Urine Protein 1+ H Urine Glucose (UA) Negative Urine Ketones Negative Urine Blood Negative Urine Nitrite Negative Urine Bilirubin Negative Urine Urobilinogen Negative Ur Leukocyte Esterase Negative Urine RBC 1 Urine WBC 1 Urine Bacteria Rare Hyaline Casts 4 Urine Mucus Few LABS NOTED. Assessment: 11/10/16 14:13 WITHDRAWAL SYMPTOMS. Plan: CONTINUE DETOX. HEPATIC FUNCTION PANEL ON 11/12/2016 FOR ABNORMAL ADMISSION HEPATIC LAB VALUES. ADVISED PATIENT TO FOLLOW-UP WITH [facility] AFTER DISCHARGE FROM DETOX FOR GENERAL MEDICAL ASSESSMENT AND FOR LOW ADMISSION PLATELET LEVEL AND FOR ABNORMAL ADMISSION HEPATIC LAB VALUES.
[2016-11-10] MEDS: IBUPROFEN 400 MG TABLET (FP) PO PRN (19:38)
[2016-11-10] MEDS: ALBUTEROL SO4 6.7 GM HFA INHALER IH PRN (19:42)
[2016-11-10] MEDS: ZOLPIDEM TARTRATE 5 MG TABLET PO PRN (22:09)
[2016-11-10] MEDS: THIAMINE HCL 100 MG TABLET (FP) PO SCH (22:09)
[2016-11-11] MEDS: chlordiazePOXIDE HCL 25 MG CAPSULE PO SCH ×2 (05:24→10:10)
[2016-11-11] MEDS: PRENATAL VITAMINS W/ FOLIC ACID TABLET (FP) PO SCH (10:08)
[2016-11-11] MEDS: ACETAMINOPHEN 325 MG TABLET (FP) PO PRN (10:09)
--- NOTE | 2016-11-11 12:54 | PN ---
S CIWA - CIWA Score Nausea/Vomitin Muscle Tremors: 4-Moderate,w/Arms Extend Anxiety: 4-Mod. Anxious/Guarded Agitation: 4-Moderately Restless Paroxysmal Sweats: No Perspiration Orientation: 0-Oriented Tacttile Disturbances: 1-Very Mild Itch/Numbness Auditory Disturbances: 0-None Visual Disturbances: 0-None Headache: 2-Mild CIWA-Ar Total Score: 18 BHS Progress Note (SOAP) Subjective: Tremor, sweating, back pain, interrupted sleep Objective: 11/11/16 12:50 Last Vital Signs Temp Pulse Resp BP Pulse Ox 97.0 F L 110 H 20 140/93 11/11/16 09:06 11/11/16 09:06 11/11/16 09:06 11/11/16 09:06 Laboratory Tests 11/09/16 11/10/16 11/10/16 20:20 06:10 06:10 WBC 5.4 RBC 3.95 L Hgb 13.3 Hct 39.5 MCV 99.9 H MCHC 33.7 RDW 13.0 Plt Count 91 L D MPV 9.6 D Sodium 137 Potassium 3.6 Chloride 96 L Carbon Dioxide 29 D Anion Gap 12 BUN 14 D Creatinine 0.9 Creat Clearance w eGFR > 60 Random Glucose 121 H D Calcium 9.1 Total Bilirubin 2.0 H D AST 160 H D ALT 167 H D Alkaline Phosphatase 261 H D Total Protein 7.3 Albumin 3.6 Urine Color [place] Urine Appearance Clear Urine pH 6.0 Ur Specific [place] 1.020 Urine Protein 1+ H Urine Glucose (UA) Negative Urine Ketones Negative Urine Blood Negative Urine Nitrite Negative Urine Bilirubin Negative Urine Urobilinogen Negative Ur Leukocyte Esterase Negative Urine RBC 1 Urine WBC 1 Urine Bacteria Rare Hyaline Casts 4 Urine Mucus Few RPR Titer 11/10/16 06:10 WBC RBC Hgb Hct MCV MCHC RDW Plt Count MPV Sodium Potassium Chloride Carbon Dioxide Anion Gap BUN Creatinine Creat Clearance w eGFR Random Glucose Calcium Total Bilirubin AST ALT Alkaline Phosphatase Total Protein Albumin Urine Color Urine Appearance Urine pH Ur Specific [place] Urine Protein Urine Glucose (UA) Urine Ketones Urine Blood Urine Nitrite Urine Bilirubin Urine Urobilinogen Ur Leukocyte Esterase Urine RBC Urine WBC Urine Bacteria Hyaline Casts Urine Mucus RPR Titer Nonreactive Labs noted: UA 1+ protein Assessment: 11/11/16 12:53 Withdrawal symptoms Noted with proteinuria Plan: Continue detox Proteinuria: encouraged to drink lots of water, repeat UA
[2016-11-11] MEDS: chlordiazePOXIDE 5 MG CAPSULE PO SCH ×2 (17:18→22:04)
[2016-11-11] MEDS: ALBUTEROL SO4 6.7 GM HFA INHALER IH PRN (17:20)
[2016-11-11] MEDS: ZOLPIDEM TARTRATE 5 MG TABLET PO PRN (22:04)
[2016-11-11] MEDS: THIAMINE HCL 100 MG TABLET (FP) PO SCH (22:04)
[2016-11-11] MEDS: IBUPROFEN 400 MG TABLET (FP) PO PRN (22:07)
[2016-11-12] MEDS: chlordiazePOXIDE 5 MG CAPSULE PO SCH ×2 (05:57→10:08)
[2016-11-12] MEDS: PRENATAL VITAMINS W/ FOLIC ACID TABLET (FP) PO SCH (10:08)
[2016-11-12] MEDS: ACETAMINOPHEN 325 MG TABLET (FP) PO PRN (10:10)
[2016-11-12 10:19] LABS: URINE APPEARANCE CLEAR; URINE BILIRUBIN NEGATIVE (NEGATIVE); URINE BLOOD NEGATIVE (NEGATIVE); URINE COLOR LTYELLOW; URINE GLUCOSE (UA) NEGATIVE (NEGATIVE); URINE KETONE NEGATIVE (NEGATIVE); URINE LEUK ESTERASE NEGATIVE (NEGATIVE); URINE NITRITE NEGATIVE (NEGATIVE); URINE PROTEIN NEGATIVE (NEGATIVE); URINE UROBILINOGEN NEGATIVE E.U./dl (0.2-1.0)
[2016-11-12 10:45] LABS: ALBUMIN 2.8 g/dl (3.4-5.0); BILIRUBIN,DIRECT 0.5 mg/dL (0.0-0.2); BILIRUBIN,TOTAL 0.9 mg/dL (0.2-1.0); TOT PROT 5.9 g/dl (6.4-8.2)
[2016-11-12] MEDS ORDERED: IBUPROFEN 600 MG TABLET (FP) PO PRN (11:10)
--- NOTE | 2016-11-12 11:14 | PN ---
BHS Progress Note (SOAP) Subjective: Sweating,interrupted sleep,restless Objective: 11/12/16 11:12 Vital Signs - 8 hr 11/12/16 11/12/16 11/12/16 03:30 06:23 09:45 Temperature 97.4 F L 97.8 F Pulse Rate 123 H 105 H Respiratory 18 18 18 Rate Blood Pressure 132/93 132/90 Laboratory Last Values WBC 5.4 K/mm3 (4.0-10.0) 11/10/16 06:10 RBC 3.95 M/mm3 (4.00-5.60) L 11/10/16 06:10 Hgb 13.3 GM/dL (11.7-16.9) 11/10/16 06:10 Hct 39.5 % (35.4-49) 11/10/16 06:10 MCV 99.9 fl (80-96) H 11/10/16 06:10 MCHC 33.7 g/dl (32.0-35.9) 11/10/16 06:10 RDW 13.0 % (11.9-15.9) 11/10/16 06:10 Plt Count 91 K/MM3 (134-434) L D 11/10/16 06:10 MPV 9.6 fl (7.5-11.1) D 11/10/16 06:10 Sodium 137 mmol/L (136-145) 11/10/16 06:10 Potassium 3.6 mmol/L (3.5-5.1) 11/10/16 06:10 Chloride 96 mmol/L (98-107) L 11/10/16 06:10 Carbon Dioxide 29 mmol/L (21-32) D 11/10/16 06:10 Anion Gap 12 (8-16) 11/10/16 06:10 BUN 14 mg/dL (7-18) D 11/10/16 06:10 Creatinine 0.9 mg/dL (0.7-1.3) 11/10/16 06:10 Creat Clearance w eGFR > 60 (>60) 11/10/16 06:10 Random Glucose 121 mg/dL (74-106) H D 11/10/16 06:10 Calcium 9.1 mg/dL (8.5-10.1) 11/10/16 06:10 Total Bilirubin 0.9 mg/dL (0.2-1.0) D 11/12/16 07:00 Direct Bilirubin 0.5 mg/dL (0.0-0.2) H 11/12/16 07:00 AST 84 U/L (15-37) H D 11/12/16 07:00 ALT 135 U/L (12-78) H 11/12/16 07:00 Alkaline Phosphatase 158 U/L (45-117) H D 11/12/16 07:00 Total Protein 5.9 g/dl (6.4-8.2) L 11/12/16 07:00 Albumin 2.8 g/dl (3.4-5.0) L D 11/12/16 07:00 Urine Color Ltyellow 11/12/16 08:00 Urine Appearance Clear 11/12/16 08:00 Urine pH 5.0 (5.0-8.0) 11/12/16 08:00 Ur Specific [place] 1.020 (1.005-1.025) 11/09/16 20:20 Urine Protein Negative (NEGATIVE) 11/12/16 08:00 Urine Glucose (UA) Negative (NEGATIVE) 11/12/16 08:00 Urine Ketones Negative (NEGATIVE) 11/12/16 08:00 Urine Blood Negative (NEGATIVE) 11/12/16 08:00 Urine Nitrite Negative (NEGATIVE) 11/12/16 08:00 Urine Bilirubin Negative (NEGATIVE) 11/12/16 08:00 Urine Urobilinogen Negative E.U./dl (0.2-1.0) 11/12/16 08:00 Ur Leukocyte Esterase Negative (NEGATIVE) 11/12/16 08:00 Urine RBC 1 /hpf (0-3) 11/09/16 20:20 Urine WBC 1 /hpf (3-5) 11/09/16 20:20 Urine Bacteria Rare /hpf (NONE SEEN) 11/09/16 20:20 Hyaline Casts 4 /lpf 11/09/16 20:20 Urine Mucus Few 11/09/16 20:20 RPR Titer Nonreactive (NONREACTIVE) 11/10/16 06:10 labs noted Assessment: 11/12/16 11:12 Withdrawal sx. Plan: Continue detox
[2016-11-12] MEDS: chlordiazePOXIDE HCL 10 MG CAPSULE PO SCH ×2 (17:37→22:18)
[2016-11-12] MEDS ORDERED: ZOLPIDEM TARTRATE 5 MG TABLET PO PRN (18:04)
[2016-11-12] MEDS: THIAMINE HCL 100 MG TABLET (FP) PO SCH (22:18)
[2016-11-12] MEDS: ALBUTEROL SO4 6.7 GM HFA INHALER IH PRN (22:19)
[2016-11-13] MEDS: chlordiazePOXIDE HCL 10 MG CAPSULE PO SCH ×2 (05:07→10:04)
[2016-11-13 09:19] VITALS: BP 120/93; PULSE 120; TEMP 98.4
[2016-11-13] MEDS: PRENATAL VITAMINS W/ FOLIC ACID TABLET (FP) PO SCH (10:04)
--- NOTE | 2016-11-13 10:51 | DS ---
[facility] Detox Discharge Summary Admission Date: 11/09/16 Discharge Date: 11/13/16 - History Present History: Alcohol Dependence Pertinent Past History: Insomnia - Physical Exam Results Vital Signs: Vital Signs Temperature 98.4 F 11/13/16 09:19 Pulse Rate 120 H 11/13/16 09:19 Respiratory Rate 20 11/13/16 09:19 Blood Pressure 120/93 11/13/16 09:19 O2 Sat by Pulse Oximetry (%) Pertinent Admission Physical Exam Findings: Withdrawal Sx. Laboratory Last Values WBC 5.4 K/mm3 (4.0-10.0) 11/10/16 06:10 RBC 3.95 M/mm3 (4.00-5.60) L 11/10/16 06:10 Hgb 13.3 GM/dL (11.7-16.9) 11/10/16 06:10 Hct 39.5 % (35.4-49) 11/10/16 06:10 MCV 99.9 fl (80-96) H 11/10/16 06:10 MCHC 33.7 g/dl (32.0-35.9) 11/10/16 06:10 RDW 13.0 % (11.9-15.9) 11/10/16 06:10 Plt Count 91 K/MM3 (134-434) L D 11/10/16 06:10 MPV 9.6 fl (7.5-11.1) D 11/10/16 06:10 Sodium 137 mmol/L (136-145) 11/10/16 06:10 Potassium 3.6 mmol/L (3.5-5.1) 11/10/16 06:10 Chloride 96 mmol/L (98-107) L 11/10/16 06:10 Carbon Dioxide 29 mmol/L (21-32) D 11/10/16 06:10 Anion Gap 12 (8-16) 11/10/16 06:10 BUN 14 mg/dL (7-18) D 11/10/16 06:10 Creatinine 0.9 mg/dL (0.7-1.3) 11/10/16 06:10 Creat Clearance w eGFR > 60 (>60) 11/10/16 06:10 Random Glucose 121 mg/dL (74-106) H D 11/10/16 06:10 Calcium 9.1 mg/dL (8.5-10.1) 11/10/16 06:10 Total Bilirubin 0.9 mg/dL (0.2-1.0) D 11/12/16 07:00 Direct Bilirubin 0.5 mg/dL (0.0-0.2) H 11/12/16 07:00 AST 84 U/L (15-37) H D 11/12/16 07:00 ALT 135 U/L (12-78) H 11/12/16 07:00 Alkaline Phosphatase 158 U/L (45-117) H D 11/12/16 07:00 Total Protein 5.9 g/dl (6.4-8.2) L 11/12/16 07:00 Albumin 2.8 g/dl (3.4-5.0) L D 11/12/16 07:00 Urine Color Ltyellow 11/12/16 08:00 Urine Appearance Clear 11/12/16 08:00 Urine pH 5.0 (5.0-8.0) 11/12/16 08:00 Ur Specific [place] 1.010 (1.005-1.025) 11/12/16 08:00 Urine Protein Negative (NEGATIVE) 11/12/16 08:00 Urine Glucose (UA) Negative (NEGATIVE) 11/12/16 08:00 Urine Ketones Negative (NEGATIVE) 11/12/16 08:00 Urine Blood Negative (NEGATIVE) 11/12/16 08:00 Urine Nitrite Negative (NEGATIVE) 11/12/16 08:00 Urine Bilirubin Negative (NEGATIVE) 11/12/16 08:00 Urine Urobilinogen Negative E.U./dl (0.2-1.0) 11/12/16 08:00 Ur Leukocyte Esterase Negative (NEGATIVE) 11/12/16 08:00 Urine RBC 1 /hpf (0-3) 11/09/16 20:20 Urine WBC 1 /hpf (3-5) 11/09/16 20:20 Urine Bacteria Rare /hpf (NONE SEEN) 11/09/16 20:20 Hyaline Casts 4 /lpf 11/09/16 20:20 Urine Mucus Few 11/09/16 20:20 RPR Titer Nonreactive (NONREACTIVE) 11/10/16 06:10 labs noted - Treatment Hospital Course: Detox Protocol Followed, Detoxed Safely, Responded well, Discharged Condition Good, Rehab Referral Accepted Patient has Accepted a Rehab Referral to: [facility] Rehab - Medication Discharge Medications: Ambulatory Orders Albuterol Sulfate Inhaler - [Ventolin Hfa Inhaler -] 2 inh PO Q4H PRN 11/09/16 - Diagnosis (1) Alcohol dependence with uncomplicated withdrawal Current Visit: Yes Status: Acute (2) Alcohol-induced mood disorder Current Visit: Yes Status: Acute (3) Insomnia Current Visit: Yes Status: Acute Qualifiers: Insomnia type: alcohol-induced Qualified Code(s): F10.982 - Alcohol use, unspecified with alcohol-induced sleep disorder (4) Alcoholic cirrhosis of liver without ascites Current Visit: Yes Status: Suspected - AMA Did Patient Leave Against Medical Advice: No
--- NOTE | 2016-11-13 14:45 | EKG ---
Test Reason : Blood Pressure : / mmHG Vent. Rate : 098 BPM Atrial Rate : 098 BPM P-R Int : 128 ms QRS Dur : 092 ms QT Int : 354 ms P-R-T Axes : 065 041 060 degrees QTc Int : 451 ms NORMAL SINUS RHYTHM NORMAL ECG WHEN COMPARED WITH ECG OF 09-NOV-2016 15:08, VENT. RATE HAS INCREASED BY 34 BPM Confirmed by YANNI WALKER MD ([id number]) on 11/13/2016 2:45:19 PM Referred By: Confirmed By:YANNI WALKER MD
== END 2016-11-13 10:18 | disposition home or self-care (01) | DRG 775 ==
LOC: YASAS 10:37 → Y3N 15:08
PROVIDERS: ADMIT Internal Medicine; ATTEND Internal Medicine
PROC: HZ2ZZZZ Detoxification Services for Substance Abuse Treatment (ICD-10-PCS; principal; 2016-11-09)
DX: F10.230 Alcohol dependence with withdrawal, uncomplicated (principal); F10.24 Alcohol dependence with alcohol-induced mood disorder; F10.282 Alcohol dependence with alcohol-induced sleep disorder; J45.909 Unspecified asthma, uncomplicated; K70.30 Alcoholic cirrhosis of liver without ascites; R80.9 Proteinuria, unspecified; Z86.79 Personal history of other diseases of the circulatory system; Z91.5 Personal history of self-harm
CPT/HCPCS: 36415; 80053; 80076; 81003; 81015; 85027; 86593; 93005; 93010

== ENCOUNTER 2018-12-09 11:21 | Emergency (ER) | payer OTHER ==
[2018-12-09 11:36] VITALS: BP 120/81; PULSE 102; TEMP 99.2; BMI 22.8
--- NOTE | 2018-12-09 12:06 | PDOC ---
History of Present Illness - General Chief Complaint: Rash Stated Complaint: RASH Time Seen by Provider: 12/09/18 11:52 History Source: Patient Exam Limitations: No Limitations - History of Present Illness Initial Comments: 12/09/18 12:08 HISTORY OF PRESENT ILLNESS: This is an otherwise healthy 53-year-old male presents emergency Department with known diagnosis of herpes zoster. Patient has been taking is Zovirax, Neurontin, Percocet and ibuprofen as prescribed but is here for continuing pain. He describes the pain as a 10/10 burning pain in his mid back radiating to his abdomen. Pain is present over crusted over zosteriform rash. No recent travel or sick contacts. PAST MEDICAL HISTORY: HZ SURGICAL HISTORY: Denies ALLERGIES: No known drug allergies REVIEW OF SYSTEMS General/Constitutional: Denies fever or chills. Denies weakness, weight change. HEENT: Denies change in vision. Denies ear pain or discharge. Denies sore throat. Cardiovascular: Denies chest pain or shortness of breath. Respiratory: Denies cough, wheezing, or hemoptysis. Gastrointestinal: Denies nausea, vomiting, diarrhea or constipation. Denies rectal bleeding. Genitourinary: Denies dysuria, frequency, or change in urination. Musculoskeletal: Denies joint or muscle swelling or pain. Denies neck or back pain. Skin and breasts: see HPI Neurologic: Denies headache, vertigo, loss of consciousness, or loss of sensation. Psychiatric: Denies depression or anxiety. Endocrine: Denies increased thirst. Denies abnormal weight change. Hematologic/Lymphatic: Denies anemia, easy bleeding, or history of blood clots. Allergic/Immunologic: Denies hives or skin allergy. Denies latex allergy. PHYSICAL EXAM General Appearance: Well-appearing, appropriately dressed. No apparent distress , no intoxication. HEENT: EOMI, PERRLA, normal ENT inspection, normal voice, pharynx normal. No conjunctival pallor. No photophobia, scleral icterus. There is no dendritic lesions present. Negative Monroy sign. No lesions present in the external auditory canals or TM. Neck: Supple. Trachea midline. No tenderness, rigidity, carotid bruit, stridor , lymphadenopathy, or thyromegaly. Respiratory/Chest: Lungs CTAB. No shortness of breath, chest tenderness, respiratory distress, accessory muscle use. No crackles, rales, rhonchi, stridor , wheezing, dullness Cardiovascular: RRR. S1, S2. No JVD, murmur, bradycardia, tachycardia. Vascular Pulses: Dorsalis-Pedis (R): 2+, Dorsalis-Pedis (L): 2+ Gastrointestinal/Abdominal: Normal bowel sounds. Abdomen soft, non-distended. No tenderness or rebound tenderness. No organomegaly, pulsatile mass, guarding, hernia, hepatomegaly, splenomegaly. Lymphatic: No adenopathy, tenderness. Musculoskeletal/Extremities: Normal inspection. FROM of all extremities, normal capillary refill. Pelvis Stable. No CVA tenderness. No tenderness to extremities, pedal edema, swelling, erythema or deformity. Integumentary: Zosteriform rash presents extending from T12 along the rib line culminating on the abdomen. Lesions have crusted over. No signs of bacterial infection near rash. 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 Fully oriented, alert. Appropriate mood/affect. Motor strength 5/5. No appreciable EOM palsy, facial droop or sensory deficit. Past History - Past Medical History Allergies/Adverse Reactions: Allergies Allergy/AdvReac Type Severity Reaction Status Date / Time No Known Allergies Allergy Verified 12/09/18 11:28 Home Medications: Ambulatory Orders Albuterol Sulfate Inhaler - [Ventolin Hfa Inhaler -] 2 inh PO Q4H PRN 11/09/16 Methylprednisolone [Medrol Dose Fritz] 4 mg PO ASDIR #21 tablet 12/09/18 Anemia: No Asthma: Yes Cancer: No Cardiac Disorders: No CVA: No COPD: No CHF: No Dementia: No Diabetes: No GI Disorders: Yes Disorders: No HTN: No Hypercholesterolemia: No Kidney Stones: Yes Liver Disease: No Psychiatric Problems: Yes Seizures: No Thyroid Disease: No - Surgical History Abdominal Surgery: No Appendectomy: No Cardiac Surgery: No Cholecystectomy: No Lung Surgery: No Neurologic Surgery: No Orthopedic Surgery: No - Reproductive History Testicular Surgery: No - Immunization History Immunization Up to Date: Yes - Suicide/Smoking/Psychosocial Hx Smoking History: Never smoked Have you smoked in the past 12 months: No If you are a former smoker, when did you quit?: Approximately 6 years ago. Cigars Per Day: 0 Hx Alcohol Use: No Drug/Substance Use Hx: No Substance Use Type: Alcohol Hx Substance Use Treatment: Yes *Physical Exam - Vital Signs Last Vital Signs Temp Pulse Resp BP Pulse Ox 99.2 F 102 H 17 120/81 98 12/09/18 11:28 12/09/18 11:28 12/09/18 11:28 12/09/18 11:28 12/09/18 11:28 Medical Decision Making - Medical Decision Making 12/09/18 12:12 A/P: 53-year-old male here for pain management due to herpes zoster infection Patient is already taking NSAIDs, gabapentin, Percocet for pain relief with minimal result. I will add Medrol Dosepak to current regimen instruct patient continue taking his previously prescribed medications including Zovirax. Patient is verbalizes understanding of discharge instructions was satisfied with the care received today. *DC/Admit/Observation/Transfer Diagnosis at time of Disposition: HZ (herpes zoster) Qualifiers: Herpes zoster complications: without complications Qualified Code(s): B02.9 - Zoster without complications - Discharge Dispostion Disposition: HOME Condition at time of disposition: Fair Decision to Admit order: No - Prescriptions Prescriptions: Methylprednisolone [Medrol Dose Fritz] 4 mg PO ASDIR #21 tablet - Referrals Referrals: Herb Whitney MD [Primary Care Provider] - - Patient Instructions Additional Instructions: Rest, keep cool and dry- avoid strenuous activity or hot /humid environments Continue previously prescribed medication. Take Medrol Dosepak as directed. Followup with PMD in one week if no resolution - Post Discharge Activity
== END 2018-12-09 12:17 | disposition home or self-care (01) ==
LOC: JERFT 11:21
DX: B02.9 Zoster without complications (principal); J45.909 Unspecified asthma, uncomplicated
CPT/HCPCS: 99281-25

== ENCOUNTER 2024-10-09 22:25 | Inpatient (IN) | payer OTHER ==
[2024-10-09] MEDS: SODIUM CHLORIDE 0.9% 500 ML INFUS.BAG IV ONE (23:46)
[2024-10-09 23:52] LABS: HEMATOCRIT 37.6 % (40.1-51.0); HEMOGLOBIN 13.5 g/dL (13.7-17.5); MCHC 35.9 g/dl (32.3-36.5); MEAN CELL VOLUME 88.5 fl (79.0-92.2); MEAN PLT VOLUME 9.3 fl (9.4-12.4); PLATELET COUNT 97 x10^3/uL (163-337); RDW 11.3 % (12.2-16.1)
[2024-10-09 23:59] LABS: VENOUS BASE EXCESS -4.4 mmol/L (-2-2); VENOUS O2 SATURATION 96.7 % (70-80); VENOUS PCO2 37.2 mmHg (38-52); VENOUS PH 7.358 (7.310-7.410)
[2024-10-10] LABS: INR 0.93 (0.83-1.09); PROTHROMBIN TIME (PATIENT) 10.2 SEC (9.7-13.0)
[2024-10-10 00:03] LABS: ACTIVATED PTT 27.6 SECONDS (25.2-36.5)
[2024-10-10 00:11] LABS: POTASSIUM 4.3 mmol/L (3.5-5.1)
[2024-10-10 00:13] LABS: CALCIUM 9.4 mg/dL (8.5-10.1)
[2024-10-10 00:14] LABS: BLOOD UREA NITROGEN 12.6 mg/dL (7-18)
[2024-10-10 00:17] LABS: CREATININE 0.9 mg/dL (0.55-1.3)
[2024-10-10 00:19] LABS: BILIRUBIN,TOTAL 0.4 mg/dL (0.2-1); TOT PROT 7.2 g/dl (6.4-8.2)
[2024-10-10] MEDS ORDERED: THIAMINE HCL 200 MG/2 ML VIAL ONE ×2 (01:37→10:34)
[2024-10-10] MEDS: THIAMINE HCL 200 MG/2 ML VIAL IVPB ONE (01:42)
[2024-10-10] MEDS: LACTATED RINGERS SOLUTION 1,000 ML/1,000 ML INFUS.BAG IV STA (03:15)
[2024-10-10] MEDS: PYRIDOXINE HCL (B-6) 100 MG TABLET PO ONE (03:19)
[2024-10-10] MEDS ORDERED: chlordiazePOXIDE HCL 25 MG CAPSULE PO PRN (07:42)
[2024-10-10] MEDS: chlordiazePOXIDE HCL 25 MG CAPSULE PO SCH (08:35)
[2024-10-10] MEDS ORDERED: INSULIN GLARGINE (LANTUS) 100 UNITS/ML UNITS SQ ONE (10:33)
[2024-10-10] MEDS ORDERED: FOLIC ACID 1 MG TABLET (FP) ONE (10:34)
[2024-10-10] MEDS: THIAMINE HCL 200 MG/2 ML VIAL IVPB SCH (10:47)
[2024-10-10] MEDS: FOLIC ACID 1 MG TABLET (FP) PO SCH (10:47)
[2024-10-10] MEDS: INSULIN GLARGINE (LANTUS) 100 UNITS/ML UNITS SQ SCH (10:47)
[2024-10-10] MEDS: CYANOCOBALAMIN 1,000 MCG TABLET (FP) PO SCH (11:38)
[2024-10-10] MEDS: INSULIN ASPART SLIDING SCALE (NOVOLOG) 1 VIAL SQ SCH (11:46)
[2024-10-10 12:08] VITALS: BMI 20.9
[2024-10-10] MEDS: HEPARIN NA (PORCINE) 5,000 UNITS/ML 1ML VIAL SQ SCH (21:38)
[2024-10-11] MEDS: SODIUM CHLORIDE 1,000 ML IV SCH (09:16)
[2024-10-11] MEDS: THIAMINE HCL 200 MG/2 ML VIAL IVPB SCH (09:17)
[2024-10-11 10:01] LABS: ABSOLUTE IMMATURE GRANULOCYTES 0.01 x10^3/uL (0.0-0.031); BASOPHILS # 0.03 x10^3/uL (0.01-0.08); EOSINOPHIL % 6.3 % (0.8-7.0); EOSINOPHILS # 0.19 x10^3/uL (0.04-0.54); HEMATOCRIT 39.8 % (40.1-51.0); HEMOGLOBIN 13.8 g/dL (13.7-17.5); MCHC 34.7 g/dl (32.3-36.5); MEAN CELL VOLUME 90.5 fl (79.0-92.2); MEAN PLT VOLUME 10.2 fl (9.4-12.4); MONOCYTE # 0.36 x10^3/uL (0.30-0.82); PLATELET COUNT 80 x10^3/uL (163-337); RDW 11.5 % (12.2-16.1)
[2024-10-11 10:02] LABS: ABSOLUTE IMMATURE GRANULOCYTES 0.01 x10^3/uL (0.0-0.031); BASOPHILS # 0.04 x10^3/uL (0.01-0.08); EOSINOPHIL % 8.8 % (0.8-7.0); EOSINOPHILS # 0.26 x10^3/uL (0.04-0.54); HEMOGLOBIN 13.9 g/dL (13.7-17.5); MCHC 34.8 g/dl (32.3-36.5); MEAN CELL VOLUME 90.5 fl (79.0-92.2); MEAN PLT VOLUME 10.5 fl (9.4-12.4); MONOCYTE # 0.35 x10^3/uL (0.30-0.82); MONOCYTE % 11.8 % (5.3-12.2); PLATELET COUNT 81 x10^3/uL (163-337); RDW 11.4 % (12.2-16.1)
[2024-10-11 10:16] LABS: POTASSIUM 3.1 mmol/L (3.5-5.1)
[2024-10-11 10:20] LABS: ALBUMIN 3.5 g/dl (3.4-5.0); BLOOD UREA NITROGEN 13.6 mg/dL (7-18); CALCIUM 9.5 mg/dL (8.5-10.1)
[2024-10-11 10:24] LABS: CREATININE 0.7 mg/dL (0.55-1.3)
[2024-10-11 10:25] LABS: BILIRUBIN,TOTAL 0.9 mg/dL (0.2-1)
[2024-10-11 10:26] LABS: TOT PROT 6.8 g/dl (6.4-8.2)
[2024-10-11 11:33] LABS: ERYTHROCYTE SEDIMENTATION RATE 28 mm/hr (0-20)
[2024-10-11 12:25] LABS: HIV INTERPRETATION NEGATIVE (NEGATIVE)
[2024-10-11 16:08] LABS: URINE AMPHETAMINES NEGATIVE (NEGATIVE); URINE BARBITURATES NEGATIVE (NEGATIVE)
[2024-10-11 16:09] LABS: METHADONE, UR NEGATIVE (NEGATIVE); OPIATES, URI NEGATIVE (NEGATIVE); PHENCYCLIDINE,URINE NEGATIVE (NEGATIVE)
[2024-10-11 16:13] LABS: COCAINE, UR POSITIVE (NEGATIVE); URINE BENZODIAZEPINES POSITIVE (NEGATIVE)
[2024-10-11] MEDS: POTASSIUM CHLORIDE TABS 20 MEQ TABLET.ER (FP) PO SCH (21:10)
[2024-10-12] MEDS: chlordiazePOXIDE HCL 10 MG CAPSULE PO SCH (09:23)
[2024-10-12 09:46] LABS: HEMATOCRIT 39.6 % (40.1-51.0); HEMOGLOBIN 13.5 g/dL (13.7-17.5); MCHC 34.1 g/dl (32.3-36.5); MEAN CELL VOLUME 92.7 fl (79.0-92.2); MEAN PLT VOLUME 10.5 fl (9.4-12.4); PLATELET COUNT 83 x10^3/uL (163-337); RDW 11.3 % (12.2-16.1)
[2024-10-12 10:09] LABS: POTASSIUM 3.6 mmol/L (3.5-5.1)
[2024-10-12 10:20] LABS: CALCIUM 9.2 mg/dL (8.5-10.1)
[2024-10-12 10:21] LABS: BLOOD UREA NITROGEN 9.1 mg/dL (7-18); MAGNESIUM 1.8 mg/dL (1.8-2.4)
[2024-10-12 10:24] LABS: CREATININE 0.8 mg/dL (0.55-1.3)
[2024-10-12 10:25] LABS: ALBUMIN 3.5 g/dl (3.4-5.0); TOT PROT 6.6 g/dl (6.4-8.2)
[2024-10-12 10:32] LABS: BILIRUBIN,TOTAL 0.6 mg/dL (0.2-1)
[2024-10-12] MEDS: ACETAMINOPHEN 1000 MG/100 ML BAG IVPB PRN (22:11)
[2024-10-13 08:54] LABS: BASOPHILS # 0.02 x10^3/uL (0.01-0.08); HEMOGLOBIN 13.6 g/dL (13.7-17.5)
[2024-10-13 08:56] LABS: ABSOLUTE IMMATURE GRANULOCYTES 0.03 x10^3/uL (0.0-0.031); EOSINOPHIL % 7.8 % (0.8-7.0); EOSINOPHILS # 0.25 x10^3/uL (0.04-0.54); HEMATOCRIT 39.6 % (40.1-51.0); MCHC 34.3 g/dl (32.3-36.5); MEAN CELL VOLUME 92.5 fl (79.0-92.2); MEAN PLT VOLUME 10.5 fl (9.4-12.4); MONOCYTE # 0.45 x10^3/uL (0.30-0.82); PLATELET COUNT 90 x10^3/uL (163-337); RDW 11.5 % (12.2-16.1)
[2024-10-13 09:13] LABS: POTASSIUM 3.9 mmol/L (3.5-5.1)
[2024-10-13 09:15] LABS: CALCIUM 9.3 mg/dL (8.5-10.1)
[2024-10-13 09:16] LABS: ALBUMIN 3.2 g/dl (3.4-5.0); BLOOD UREA NITROGEN 10.6 mg/dL (7-18)
[2024-10-13 09:19] LABS: CREATININE 0.8 mg/dL (0.55-1.3)
[2024-10-13 09:21] LABS: BILIRUBIN,TOTAL 0.6 mg/dL (0.2-1); TOT PROT 6.3 g/dl (6.4-8.2)
[2024-10-13] MEDS: THIAMINE HCL 200 MG/2 ML VIAL IVPB SCH (10:23)
[2024-10-13 11:37] VITALS: RESP 18
[2024-10-13] MEDS ORDERED: INSULIN ASPART SLIDING SCALE (NOVOLOG) 1 VIAL SQ ONE ×2 (13:02→17:04)
[2024-10-13 14:33] VITALS: BP 125/86; PULSE 75; TEMP 98.8
== END 2024-10-13 18:47 | disposition home or self-care (01) | DRG 774 ==
LOC: JER 22:25 → JERBED 10-10 05:48 → OBSVTOIN 10-10 07:38 → J6S 10-10 11:43
PROVIDERS: ADMIT Internal Medicine; ATTEND Internal Medicine
DX: F10.120 Alcohol abuse with intoxication, uncomplicated (principal); I10 Essential (primary) hypertension; E78.5 Hyperlipidemia, unspecified; E11.9 Type 2 diabetes mellitus without complications; G20.A1 Parkinson's disease without dyskinesia, without mention of fluctuations; D64.9 Anemia, unspecified; G92.8 Other toxic encephalopathy; E51.2 Wernicke's encephalopathy; E11.65 Type 2 diabetes mellitus with hyperglycemia; E87.1 Hypo-osmolality and hyponatremia; D61.818 Other pancytopenia; F14.120 Cocaine abuse with intoxication, uncomplicated; R26.0 Ataxic gait
CPT/HCPCS: 36415; 70450-TC; 71045-TC-FY; 80048; 80053; 80307; 82550; 82607; 82746; 82803; 82962; 83036; 83690; 83735; 84439; 84443; 84484; 85025; 85027; 85610; 85651; 85730; 87389; 93005; 93010; 97116-GP; 97161-GP; 99285-25; G0378; J0131; J1644